=== PATIENT | female | born 1970 | race African-American/Black ===

== ENCOUNTER 2021-04-08 08:29 | Outpatient (REF) | payer OTHER, SELFPAY | END 2021-04-08 08:30 | disposition home or self-care (01) | LOC: HO.SCI 08:29 | PROVIDERS: Visit Provider Internal Medicine | DX: Z13.89 Encounter for screening for other disorder (principal) ==

== ENCOUNTER 2021-05-13 09:03 | Outpatient (REF) | payer OTHER, SELFPAY ==
--- NOTE | ~2021-05-13 | US_ITS ---
EXAMINATION: US THYROID CLINICAL INFORMATION: Goiter. COMPARISON: None TECHNIQUE: Linear transducer grayscale and color Doppler examination with attention to the region of the thyroid. FINDINGS: SIZE: Measurements of the thyroid lobes and nodules are given in sagittal, anteroposterior and transverse dimensions respectively. Right Thyroid Lobe: 5.7 x 2.0 x 2.3 cm, volume 13.7 mL. Parenchyma: The gland echotexture is heterogeneous. Thyroid vascularity is normal. Left Thyroid Lobe: 7.7 x 2.9 x 3.0 cm, volume 35.0 mL. Parenchyma: The gland echotexture is heterogeneous. Thyroid vascularity is increased. Isthmus: 0.9 cm in maximum AP dimension. Estimated total number of nodules greater than or equal to 1 cm: 2. Sedimentationist nodules are described as follows: 1. Location: Left lobe extending into isthmus. Size: 4.3 x 2.9 x 5.0 cm, volume 32.9 mL. Nodule characteristics: Composition: Solid (2). Echogenicity: Isoechoic (1). Shape: Not taller than wide (0). Margins: Lobulated (2). Echogenic Foci: None (0). ACR TI-RADS total points: 5 ACR TI-RADS category: 4 2. Location: Right upper pole. Size: 1.0 x 0.7 x 1.0 cm, volume 0.37 mL. Nodule characteristics: Composition: Solid (2). Echogenicity: Hypoechoic (2). Shape: Not taller than wide (0). Margins: Smooth (0). Echogenic Foci: Punctate echogenic foci (3). ACR TI-RADS total points: 7 ACR TI-RADS category: 5 3. Location: Right mid pole. Size: 0.7 x 0.4 x 0.6 cm, volume 0.07 mL. Nodule characteristics: Composition: Mixed cystic and solid (1). Echogenicity: Hypoechoic (2). Shape: Not taller than wide (0). Margins: Smooth (0). Echogenic Foci: None (0). ACR TI-RADS total points: 3 ACR TI-RADS category: 3 4. Location: Right lower pole/lateral. Size: 0.7 x 0.4 x 0.6 cm, volume 0.09 mL. Nodule characteristics: Composition: Solid/almost completely solid (2). Echogenicity: Hypoechoic (2). Shape: Not taller than wide (0). Margins: Smooth (0). Echogenic Foci: None (0). ACR TI-RADS total points: 4 ACR TI-RADS category: 4 5. Location: Right lower pole/medial. Size: 0.6 x 0.4 x 0.4 cm, volume 0.05 mL. Nodule characteristics: Composition: Cannot be determined (2). Echogenicity: Cannot be determined (1). Shape: Not taller than wide (0). Margins: Smooth (0). Echogenic Foci: Peripheral calcifications (2). ACR TI-RADS total points: 5 ACR TI-RADS category: 5 NODES: No lymphadenopathy is seen in the tissue surrounding the thyroid gland. US/US thyroid IMPRESSION: Enlarged heterogeneous thyroid gland with multiple bilateral nodules. Fine-needle aspiration of the largest nodule in the left lobe extending into the isthmus and partially calcified nodule in the right upper lobe recommended. ACR TI-RADS RECOMMENDATION REFERENCE: Ultrasound-guided fine-needle aspiration, followup ultrasound, no further follow up. * TR1 (0 point) and TR 2 (2 points): No FNA or follow up * TR3 (3 points): FNA if more than or equal to 2.5 cm in maximum dimension, followup ultrasound in 1, 3 and 5 years if 1.5 to 2.4 cm in maximum dimension. * TR4 (4-6 points): FNA if more than or equal to 1.5 cm in maximum dimension, followup ultrasound in 1, 2, 3 and 5 years if 1 to 1.4 cm in maximum dimension. * TR5 (more than or equal to 7 points): FNA if more than or equal to 1 cm in maximum dimension, followup ultrasound every year for 5 years if 0.5 to 0.9 cm in maximum dimension. * TR3, TR4 or TR5 nodules that are below the size threshold for follow up receive no follow up.
== END 2021-05-13 09:04 | disposition home or self-care (01) ==
LOC: HO.HMGCX 09:03
PROVIDERS: PCP Internal Medicine; Visit Provider Internal Medicine
DX: E01.0 Iodine-deficiency related diffuse (endemic) goiter (principal)
CPT/HCPCS: 76536

== ENCOUNTER 2022-12-02 10:41 | Outpatient (REF) | payer OTHER, SELFPAY ==
--- NOTE | 2022-12-02 11:35 | PM.OP ---
Brief Operative Note Date of Service: 12/02/22 Pre-op diagnosis: Multinodular Thyroid Procedure: This is doctor Jennifer Mojica. This is an ultrasound-guided fine-needle aspiration report. Indication: Multinodular Thyroid Porcedure: Procedure was explained to the patient. Alternatives, the risk and benefits were discussed. Written consent was obtained. A time-out was also obtained. After sterile preparation, 1 ml of 1% lidocaine solution was applied subcutaneously for anesthetic effect. Then Fine-needle aspiration of a left lobe 5.0 cm thyroid nodule was performed using direct ultrasound guidance to confirm accurate needle placement. Four aspirations were made using 27 gauge needles. Samples were submitted for cytology. 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 The patient tolerated the procedure well. Aftercare instructions were provided. Impression: Uncomplicated fine needle aspiration biopsy of a left lobe 5.0 cm thyroid nodule under ultrasound guidance. Surgeon: Jennifer Mojica, DO Was an Composition Siding Worker used for this Procedure?: No Estimated blood loss (mL): 0
[2022-12-02] MEDS: Lidocaine HCl 1 % MPF 5 ML VIAL 1 ML SUBCUT (12:11)
== END 2022-12-02 10:42 | disposition home or self-care (01) ==
LOC: HO.US 10:41
PROVIDERS: PCP Internal Medicine; Visit Provider Internal Medicine
DX: E04.2 Nontoxic multinodular goiter (principal)
CPT/HCPCS: 10005; 88172; 88173; 88305

== ENCOUNTER → 2022-12-22 07:57 | Outpatient (BNVA) | payer OTHER, SELFPAY | PROVIDERS: PCP Internal Medicine; Visit Provider Internal Medicine | DX: E04.2 Nontoxic multinodular goiter (principal); E03.9 Hypothyroidism, unspecified; E55.9 Vitamin D deficiency, unspecified | CPT/HCPCS: 99212 ==

== ENCOUNTER 2022-12-22 08:37 | Outpatient (REF) | payer OTHER, SELFPAY ==
[2022-12-22 11:16] LABS: Alanine Aminotransferase 24 U/L (0-31); Albumin Level 4.4 g/dL (3.5-5.0); Alkaline Phosphatase 63 U/L (39-117); Anion Gap 12 (12-20); Aspartate Amino Transferase 12 U/L (5-31); Bilirubin Total 0.4 mg/dL (0.0-1.0); Blood Urea Nitrogen 8 mg/dL (9-16); Calcium 10.2 mg/dL (8.4-10.2); Carbon Dioxide 30 mmol/L (22-29); Chloride 103 mmol/L (96-108); Estimated Glomerular Filt Rate > 60; Glucose Random 259 mg/dL (60-115); Phosphorus 2.6 mg/dL (2.7-4.5); Potassium 3.9 mmol/L (3.3-5.1); Sodium 141 mmol/L (135-145); Total Protein 7.1 g/dL (6.5-8.0)
[2022-12-22 11:23] LABS: Free T4 (Free Thyroxine) 1.14 ng/dL (0.71-1.85); Thyroid Stimulating Hormone 0.76 uIU/mL (0.32-4.0)
[2022-12-24 16:33] LABS: Calcium (PTHI) 10.2 mg/dL (8.6-10.4); PTHI 42 pg/mL (16-77)
== END 2022-12-22 08:38 | disposition home or self-care (01) ==
LOC: HO.10HDL 08:37
PROVIDERS: Visit Provider Internal Medicine
DX: E04.2 Nontoxic multinodular goiter (principal); E55.9 Vitamin D deficiency, unspecified
CPT/HCPCS: 36415; 80053; 82306; 83970; 84100; 84439; 84443

== ENCOUNTER 2023-09-05 10:03 | Outpatient (AMB) | payer OTHER, SELFPAY ==
[2023-09-05 10:06] VITALS: BP 154/78; PULSE 100; BMI 27.0
--- NOTE | 2023-09-05 10:06 | MHC.OFFVIS ---
Intake Vital Signs 09/05/23 10:06 Height 5 ft 5 in Weight 162 lb 7.691 oz BMI 27.0 BP 154/78 H Blood Pressure Location Lt brachial Position Sitting Pulse 100 Pulse Source Pulse Oximeter Intake Visit Reasons: NTMNG-confirmed Intake Note: Patient present today for NTMNG follow up visit. Customer Strategy Manager Required: Yes Customer Strategy Manager Language: Occitan Customer Strategy Manager Name: [place] Information Interpreted: non-clinical & clinical Accompanied by: Son Allergies No Known Allergies Allergy (Verified 12/22/22 08:18) Medication List - Last Reconciled 09/05/23 by Gerhard Renteria MD alcohol swabs (Alcohol Prep Pads) pad topical DAILY blood sugar diagnostic (FreeStyle Lite Strips) As directed lancets (TRUEplus Lancets) As directed levothyroxine 50 mcg PO DAILY lisinopril 5 mg PO DAILY metformin 500 mg PO BID simvastatin 40 mg PO DAILY sitagliptin phosphate (Januvia) 50 mg PO DAILY HPI HPI Comments History of Present Illness Details 53 YO F with PMHx Hypothyroidism and a multinodular thyroid who is seen in F/U for a NTMNG. The patient last saw Dr. Puentes on 12/02/2022 History is provided by her Son today. Was initially diagnosed with multinodular thyroid in her home country of [place]. He reports she did undergo an FNA biopsy there, approximately 1 year ago, but he is unsure which nodules were biopsied. He does report the results were benign. She then underwent an FNA biopsy 12/02/2022 of a left lower pole 5.0 cm thyroid nodule with benign cytology. She presents today to review these results. She denies any dysphagia or hoarseness of voice, but does report pressure while lying flat. She states this is significantly disrupting her sleep. She otherwise feels well and has no complaints today. She does have a history of hypothyroidism and takes levothyroxine 50 mcg PO daily. She was consuming a diet low in iodine for the majority of her life. Denies any history of head or neck irradiation. Denies any family history of thyroid cancer. Thyroid US: 05/13/2021 Right Thyroid Lobe: 5.7 x 2.0 x 2.3 cm, volume 13.7 mL. Parenchyma: The gland echotexture is heterogeneous. Thyroid vascularity is normal. Left Thyroid Lobe: 7.7 x 2.9 x 3.0 cm, volume 35.0 mL. Parenchyma: The gland echotexture is heterogeneous. Thyroid vascularity is increased. Isthmus: 0.9 cm in maximum AP dimension. Estimated total number of nodules greater than or equal to 1 cm: 2. [place] nodules are described as follows: 1. Location: Left lobe extending into isthmus. ?? ? Size: 4.3 x 2.9 x 5.0 cm, volume 32.9 mL. ?? ? Nodule characteristics: ?? ? Composition: Solid (2). ?? ? Echogenicity: Isoechoic (1). ?? ? Shape: Not taller than wide (0). ?? ? Margins: Lobulated (2). ?? ? Echogenic Foci: None (0). ?? ? ACR TI-RADS total points: 5 ?? ? ACR TI-RADS category: 4 2. Location: Right upper pole. ?? ? Size: 1.0 x 0.7 x 1.0 cm, volume 0.37 mL. ?? ? Nodule characteristics: ?? ? Composition: Solid (2). ?? ? Echogenicity: Hypoechoic (2). ?? ? Shape: Not taller than wide (0). ?? ? Margins: Smooth (0). ?? ? Echogenic Foci: Punctate echogenic foci (3). ?? ? ACR TI-RADS total points: 7 ?? ? ACR TI-RADS category: 5 3. Location: Right mid pole. ?? ? Size: 0.7 x 0.4 x 0.6 cm, volume 0.07 mL. ?? ? Nodule characteristics: ?? ? Composition: Mixed cystic and solid (1). ?? ? Echogenicity: Hypoechoic (2). ?? ? Shape: Not taller than wide (0). ?? ? Margins: Smooth (0). ?? ? Echogenic Foci: None (0). ?? ? ACR TI-RADS total points: 3 ?? ? ACR TI-RADS category: 3 4. Location: Right lower pole/lateral. ?? ? Size: 0.7 x 0.4 x 0.6 cm, volume 0.09 mL. ?? ? Nodule characteristics: ?? ? Composition: Solid/almost completely solid (2). ?? ? Echogenicity: Hypoechoic (2). ?? ? Shape: Not taller than wide (0). ?? ? Margins: Smooth (0). ?? ? Echogenic Foci: None (0). ?? ? ACR TI-RADS total points: 4 ?? ? ACR TI-RADS category: 4 5.? Location: Right lower pole/medial. ?? ? Size: 0.6 x 0.4 x 0.4 cm, volume 0.05 mL. ?? ? Nodule characteristics: ?? ? Composition: Cannot be determined (2). ?? ? Echogenicity: Cannot be determined (1). ?? ? Shape: Not taller than wide (0). ?? ? Margins: Smooth (0). ?? ? Echogenic Foci: Peripheral calcifications (2). ?? ? ACR TI-RADS total points: 5 ?? ? ACR TI-RADS category: 5 NODES: No lymphadenopathy is seen in the tissue surrounding the thyroid gland. Labs: No recent pertinent labs to review She was referred to Dr. Huston for possible left lobectomy by Dr. Puentes. [facility] Medical History Hypothyroidism Multinodular thyroid T2DM (type 2 diabetes mellitus) Vitamin D deficiency Surgical History Hx of section Family History Father Unknown family medical history Mother Unknown family medical history Social History Alcohol intake: never Patient Tobacco Use Status: Never used Tobacco Physical Exam Vital Signs: Last Vital Signs Pulse 100 09/05/23 10:06 BP 154/78 H 09/05/23 10:06 BMI result Body Mass Index 27.0 Const Other: Thyroid gland increased in size and weighs 50 gms Llobe>R lbe Assessment & Plan Assessment & Plan (1) Hypothyroidism: Code(s): E03.9 - Hypothyroidism, unspecified Plan: Appears clinically euthyroid on 50 mcg levothyroxine. Will check free T4 and TSH and adjust levothyroxine accordingly (2) Multinodular thyroid: Code(s): E04.2 - Nontoxic multinodular goiter Plan: This is a 53-year-old female with a history of multinodular goiter with a large left thyroid nodule extending into the isthmus with compressive symptoms. She appears to be clinically euthyroid on 50 mcg levothyroxine. With the son acting as fitness management director, I explained the necessity of seeing Dr. Huston for evaluation of left thyroidectomy. They cancelled the previous appointment but will make another one. They will follow-up after lobectomy Orders: Orders Free T4 (Free Thyroxine) Today E03.9 - Hypothyroidism, unspecified, E04.2 - Nontoxic multinodular goiter Thyroid Stimulating Hormone Today E03.9 - Hypothyroidism, unspecified, E04.2 - Nontoxic multinodular goiter Coding Level of Care Code Est Pt Level 3 (43336) Diagnoses Hypothyroidism E03.9 Multinodular thyroid E04.2
== END 2023-09-05 10:27 | disposition home or self-care (01) ==
PROVIDERS: PCP Internal Medicine; Visit Provider Internal Medicine Endocrinology, Diabetes & Metabolism
DX: E03.9 Hypothyroidism, unspecified (principal); E04.2 Nontoxic multinodular goiter
CPT/HCPCS: 99213

== ENCOUNTER → 2023-09-05 10:03 | Outpatient (BNVA) | payer OTHER, SELFPAY | PROVIDERS: PCP Internal Medicine; Visit Provider Internal Medicine Endocrinology, Diabetes & Metabolism | DX: E03.9 Hypothyroidism, unspecified (principal); E04.2 Nontoxic multinodular goiter | CPT/HCPCS: 99212 ==

== ENCOUNTER 2023-09-05 10:35 | Outpatient (REF) | payer OTHER, SELFPAY ==
[2023-09-05 14:13] LABS: Free T4 (Free Thyroxine) 1.13 ng/dL (0.71-1.85); Thyroid Stimulating Hormone 0.47 uIU/mL (0.32-4.0)
== END 2023-09-05 10:36 | disposition home or self-care (01) ==
LOC: HO.10HDL 10:35
PROVIDERS: Visit Provider Internal Medicine Endocrinology, Diabetes & Metabolism
DX: E03.9 Hypothyroidism, unspecified (principal); E04.2 Nontoxic multinodular goiter
CPT/HCPCS: 36415; 84439; 84443

== ENCOUNTER 2024-01-30 08:41 | Outpatient (REF) | payer OTHER, SELFPAY ==
[2024-01-30 13:15] LABS: MANUAL DIFF FLAG NO
[2024-01-30 13:18] LABS: Basophils Percent Auto 0.4 % (0-2); Eosinophils Absolute Auto 0.1 X10*3/uL (0.0-0.4); Eosinophils Percent Auto 0.8 % (0-4); Hematocrit 41.1 % (37.0-47.0); Hemoglobin 14.2 g/dl (12.0-16.0); Imm Gran Abs Auto 0.03 X10*3/uL (0.00-0.03); Imm Gran Pct Auto 0.4 % (0.0-0.4); Lymphocytes Absolute Auto 2.8 X10*3/uL (1.2-4.9); Lymphocytes Percent Auto 38.2 % (20-40); Mean Corpuscular HGB Conc 34.5 g/dl (31.0-35.0); Mean Corpuscular Hemoglobin 29.8 pg (27.0-33.0); Mean Corpuscular Volume 86.2 fL (80.0-98.0); Mean Platelet Volume 11.1 fL (9.4-12.3); Monocytes Absolute Auto 0.4 X10*3/uL (0.1-1.2); Monocytes Percent Auto 5.8 % (2-11); Neutrophils Percent Auto 54.4 % (45-73); Platelet Count 241 X10*3/uL (160-400); Red Blood Count 4.77 X10*6/uL (4.20-5.50); Red Cell Distribution Width 12.5 % (11.0-16.0); White Blood Count 7.4 X10*3/uL (4.8-10.8)
[2024-01-30 13:47] LABS: Alanine Aminotransferase 24 U/L (0-31); Albumin Level 4.6 g/dL (3.5-5.0); Alkaline Phosphatase 61 U/L (39-117); Anion Gap 16 (12-20); Aspartate Amino Transferase 12 U/L (5-31); Bilirubin Total 0.4 mg/dL (0.0-1.0); Blood Urea Nitrogen 15 mg/dL (9-16); Calcium 9.8 mg/dL (8.4-10.2); Carbon Dioxide 26 mmol/L (22-29); Chloride 103 mmol/L (96-108); Cholesterol 169 mg/dL (<200); Estimated Glomerular Filt Rate > 60; Glucose Random 220 mg/dL (60-115); HDL Cholesterol 47 mg/dL (>40); LDL Cholesterol Calculated 92 mg/dL (<100); Potassium 4.3 mmol/L (3.3-5.1); Sodium 141 mmol/L (135-145); Total Protein 7.7 g/dL (6.5-8.0); Triglycerides 154 mg/dL (<150)
[2024-01-30 13:55] LABS: Microalbum/Creatinine Ratio Ur 11.7 ug/mg cr (<30)
[2024-01-30 14:06] LABS: Folate 12.8 ng/mL (> or = 4.0); Vitamin B12 406 pg/mL (200-900)
[2024-01-30 15:02] LABS: TSH reflex Free T4 0.63 uIU/mL (0.32-4.0)
== END 2024-01-30 08:42 | disposition home or self-care (01) ==
LOC: HO.CHCLDS 08:41
PROVIDERS: Visit Provider Family Medicine
DX: E11.65 Type 2 diabetes mellitus with hyperglycemia (principal); E03.9 Hypothyroidism, unspecified
CPT/HCPCS: 36415; 80053; 80061; 82043; 82570; 82607; 82746; 84443; 85025

== ENCOUNTER 2024-02-08 09:08 | Outpatient (REF) | payer OTHER, SELFPAY ==
--- NOTE | ~2024-02-08 | MM_ITS ---
EXAMINATION: MM SCREENING DIGITAL BREAST TOMOSYNTHESIS, BILATERAL CLINICAL INFORMATION: Screening. Asymptomatic. COMPARISON: Mammography: This is a baseline mammogram. TECHNIQUE: Digital breast tomosynthesis is performed in both the craniocaudal and mediolateral oblique views along with computer-aided detection (CAD). Synthesized 2D images are generated from the tomosynthesis. FINDINGS: There are scattered areas of fibroglandular density (ACR BI-RADS breast composition Category b). There are no significant masses, abnormal calcifications, or other abnormalities. MM/MM tomosynthesis screening BI IMPRESSION: No mammographic evidence of malignancy. ASSESSMENT: BI-RADS BI-RADS 1 - Negative RECOMMENDATION: Routine annual mammography screening. 1 year F/U This examination should not preclude the clinical evaluation of a suspicious palpable abnormality. This patient's information was entered into a reminder system with a target due date for their next mammogram.
== END 2024-02-08 09:09 | disposition home or self-care (01) ==
LOC: HO.MAMMO 09:08
PROVIDERS: PCP Internal Medicine; Visit Provider Family Medicine
DX: Z12.31 Encounter for screening mammogram for malignant neoplasm of breast (principal)
CPT/HCPCS: 77063; 77067

== ENCOUNTER → 2024-02-08 09:15 | Outpatient (BNV) | payer OTHER, SELFPAY | PROVIDERS: PCP Internal Medicine; Visit Provider Radiology Diagnostic Radiology | DX: Z12.31 Encounter for screening mammogram for malignant neoplasm of breast (principal) | CPT/HCPCS: 77063; 77067 ==

== ENCOUNTER 2024-05-22 15:45 | Outpatient (REF) | payer OTHER, SELFPAY ==
[2024-05-22 18:03] LABS: Free T4 (Free Thyroxine) 1.17 ng/dL (0.71-1.85); Thyroid Stimulating Hormone 6.11 uIU/mL (0.32-4.0)
[2024-05-23 09:14] LABS: Thyroglobulin 0.8 ng/mL; Thyroglobulin Antibodies <1 IU/mL (< or = 1)
[2024-05-24 20:07] LABS: Thyroglobulin Antibody <1 IU/mL (<=1); Thyroglobulin Level 0.8 ng/mL
== END 2024-05-22 15:46 | disposition home or self-care (01) ==
LOC: HO.LAB 15:45
PROVIDERS: PCP Internal Medicine; Visit Provider Student in an Organized Health Care Education/Training Program
DX: E04.2 Nontoxic multinodular goiter (principal); E03.9 Hypothyroidism, unspecified; C73 Malignant neoplasm of thyroid gland
CPT/HCPCS: 36415; 84432; 84439; 84443; 86800

== ENCOUNTER 2024-05-24 09:44 | Outpatient (AMB) | payer OTHER, SELFPAY ==
--- NOTE | 2024-05-24 09:58 | MHC.OFFVIS ---
Vital Signs 05/24/24 09:59 Weight 159 lb 6.307 oz BP 150/76 H Blood Pressure Location Lt brachial Position Sitting Pulse 84 Pulse Source Pulse Oximeter Intake Visit Reasons: F/b-[id number] Dr. Rob/LVM Intake Note: Patient present today for Thyroidectomy follow up visit. [employer] Required: Yes [employer] Language: Greenlandic [employer] Services: [employer] Offered & Declined Accompanied by: Son Allergies No Known Allergies Allergy (Verified 05/24/24 10:01) Medication List - Last Reconciled 05/24/24 by Faustina Rob MD alcohol swabs (Alcohol Prep Pads) pad topical DAILY blood sugar diagnostic (FreeStyle Lite Strips) As directed lancets (TRUEplus Lancets) As directed levothyroxine 112 mcg PO DAILY lisinopril 5 mg PO DAILY metformin 500 mg PO BID simvastatin 40 mg PO DAILY sitagliptin phosphate (Januvia) 50 mg PO DAILY HPI Comments Details: 53-year-old female coming in today for follow up of papillary thyroid cancer status post total thyroidectomy on 04/18/[address] Tapan Huston at [facility], with pathology revealing multifocal (4 foci) classic PTC, largest tumor 8 mm in the right lobe, remaining foci ranging between 0.15-4 mm bilaterally, with no ET E/AI/LI, negative margins, no lymph nodes assessment. NU low risk of recurrence for initial risk. Now coming in for follow up. She was previously followed by Dr. Puentes, then saw Dr. Renteria, last visit August 2023. She is here with her son today who is doing all the interpretation and answering the questions. History of PTC in detail Was initially diagnosed with multinodular thyroid in her home country [place] 2020: Apparently she did undergo FNA biopsy there in 2020, but was unsure which nodules were biopsied. Reportedly the results were benign. Thyroid ultrasound from May 2021 showed multiple bilateral thyroid nodules with a left lobe dominant nodule extending into the isthmus measuring 4 point 3 X 2.9 X 5 cm. TR 4 category. Established care with us with Dr. Puentes in January 2022. November/2022: Underwent FNA of the left dominant 5 cm nodule which came back benign [place] category 2 She continued to complain of compressive symptoms hence she was referred to Dr. Tapan Huston at [facility]. 04/18/2024: Underwent total thyroidectomy with Dr. Tapan Huston at [facility] with pathology revealing multifocal classic PTC (4 foci)largest tumor 8 mm in the right lobe, remaining foci ranging between 0.15-4 mm bilaterally, with no ET E/AI/LI, negative margins, no lymph nodes assessment. AJCC stage I (pT1, NX), NU initial low risk of recurrence She also notably has a history of hypothyroidism previously and was on levothyroxine 50 mcg daily. Post surgery she has been started on levothyroxine 112 mcg daily since 04/18/24. She is adherent to her therapy however she has been taking it after breakfast daily. Most recent labs 05/22/24: TSH 6.11, free T4 1.17, thyroglobulin 0.8, thyroglobulin antibodies undetectable She currently denies any numbness or tingling in feet or hands. Denies any perioral numbness. Her vitamin-D level was 7 from December 2022, fortunately no symptoms of hypocalcemia with no parathyroid adenoma removed during surgery. She is not taking any vitamin-D currently. Patient currently denies heat or cold intolerance, diarrhea or constipation, hair loss, palpitation, anxiety, weight changes, mood changes, low energy, changes in appearance of eyes or vision changes, tremors, increased diaphoresis or dry skin. ? Patient denies any difficulty swallowing, pain on swallowing or voice changes or difficulty breathing. Patient denies any history of childhood neck radiation. Denies having ever used lithium, amiodarone or biotin supplements. Patient denies any family history of thyroid cancer or thyroid disease. Review of systems Constitutional: no fevers, chills or weight loss HEENT: no changes in vision Cardiac: No chest pain, discomfort or palpitations. Pulmonary: No SOB GI:No abdominal pain, no nausea or vomiting, no anorexia, no blood in stool : no burning micturition, dysuria or increase in urinary frequency Physical exam General: sitting comfortably in no acute distress HEENT: normocephalic/atraumatic,, moist oral mucosa Neck: supple, surgical scar well healed, no dorsocervical or supraclavicular fat pads Cardiac: normal heart sounds Pulm: normal breath sounds B/L, no added breath sounds Abd: not distended, no tenderness Extremities: no edema, no signs of myxedema Neuro: AAO x3, Speech: normal, no facial droop, moving all 4 extremities [facility] Medical History (Updated 05/24/24 @ 10:48 by Faustina Rob MD) Papillary thyroid carcinoma T2DM (type 2 diabetes mellitus) Vitamin D deficiency Multinodular thyroid Hypothyroidism Surgical History Hx of section Family History Father Unknown family medical history Mother Unknown family medical history Social History Alcohol intake: never Patient Tobacco Use Status: Never used Tobacco Physical Exam Vital Signs: Last Vital Signs Pulse 84 05/24/24 09:59 BP 150/76 H 05/24/24 09:59 Results Reviewed Results Reviewed: Laboratory Tests 05/22/24 16:00 TSH 6.11 H Free T4 1.17 Thyroglobulin 0.8 L Thyroglobulin Antibody <1 US THYROID May 2021 CLINICAL INFORMATION: Goiter. COMPARISON: None TECHNIQUE: Linear transducer grayscale and color Doppler examination with attention to the region of the thyroid. FINDINGS: SIZE: Measurements of the thyroid lobes and nodules are given in sagittal, anteroposterior and transverse dimensions respectively. Right Thyroid Lobe: 5.7 x 2.0 x 2.3 cm, volume 13.7 mL. Parenchyma: The gland echotexture is heterogeneous. Thyroid vascularity is normal. Left Thyroid Lobe: 7.7 x 2.9 x 3.0 cm, volume 35.0 mL. Parenchyma: The gland echotexture is heterogeneous. Thyroid vascularity is increased. Isthmus: 0.9 cm in maximum AP dimension. Estimated total number of nodules greater than or equal to 1 cm: 2. [employer] nodules are described as follows: 1. Location: Left lobe extending into isthmus. Size: 4.3 x 2.9 x 5.0 cm, volume 32.9 mL. Nodule characteristics: Composition: Solid (2). Echogenicity: Isoechoic (1). Shape: Not taller than wide (0). Margins: Lobulated (2). Echogenic Foci: None (0). ACR TI-RADS total points: 5 ACR TI-RADS category: 4 2. Location: Right upper pole. Size: 1.0 x 0.7 x 1.0 cm, volume 0.37 mL. Nodule characteristics: Composition: Solid (2). Echogenicity: Hypoechoic (2). Shape: Not taller than wide (0). Margins: Smooth (0). Echogenic Foci: Punctate echogenic foci (3). ACR TI-RADS total points: 7 ACR TI-RADS category: 5 3. Location: Right mid pole. Size: 0.7 x 0.4 x 0.6 cm, volume 0.07 mL. Nodule characteristics: Composition: Mixed cystic and solid (1). Echogenicity: Hypoechoic (2). Shape: Not taller than wide (0). Margins: Smooth (0). Echogenic Foci: None (0). ACR TI-RADS total points: 3 ACR TI-RADS category: 3 4. Location: Right lower pole/lateral. Size: 0.7 x 0.4 x 0.6 cm, volume 0.09 mL. Nodule characteristics: Composition: Solid/almost completely solid (2). Echogenicity: Hypoechoic (2). Shape: Not taller than wide (0). Margins: Smooth (0). Echogenic Foci: None (0). ACR TI-RADS total points: 4 ACR TI-RADS category: 4 5. Location: Right lower pole/medial. Size: 0.6 x 0.4 x 0.4 cm, volume 0.05 mL. Nodule characteristics: Composition: Cannot be determined (2). Echogenicity: Cannot be determined (1). Shape: Not taller than wide (0). Margins: Smooth (0). Echogenic Foci: Peripheral calcifications (2). ACR TI-RADS total points: 5 ACR TI-RADS category: 5 NODES: No lymphadenopathy is seen in the tissue surrounding the thyroid gland. US/US thyroid IMPRESSION: Enlarged heterogeneous thyroid gland with multiple bilateral nodules. Fine-needle aspiration of the largest nodule in the left lobe extending into the isthmus and partially calcified nodule in the right upper lobe recommended. Assessment & Plan Assessment & Plan (1) Papillary thyroid carcinoma: Code(s): C73 - Malignant neoplasm of thyroid gland Category: Medical Plan: 53-year-old female coming in today for follow up of papillary thyroid cancer status post total thyroidectomy on 04/18/[address] Tapan Huston at [facility], with pathology revealing multifocal (4 foci) classic PTC, largest tumor 8 mm in the right lobe, remaining foci ranging between 0.15-4 mm bilaterally, with no ET E/AI/LI, negative margins, no lymph nodes assessment. AJCC stage I (pT1, NX) ,NU low risk of recurrence for initial risk. She is at this time 5 weeks post surgery and her most recent labs from 05/22/24, showed thyroglobulin level of 0.8. Undetectable thyroglobulin antibodies. It takes about 6-8 weeks to get a good idea of what her postoperative thyroglobulin level is like. The level currently is not significantly elevated but still detectable and we hope that it will go down further in the next few weeks. I will have her repeat labs in 6 weeks. Her TSH is noted to be at 6.11. She is currently on levothyroxine 112 mcg daily. She has been taking it after her breakfast which might be affecting her absorption. Given that her thyroglobulin level is currently detectable in greater than 0.2, TSH goal is less than 0.1. If her thyroglobulin becomes undetectable, we can liberalize this goal to 0.1-0.5. For now I will increase her levothyroxine to 125 mcg daily. Also counseled her about importance of taking levothyroxine on an empty stomach, 1st thing in the morning and to wait at least an hour before she has breakfast/coffee/tea. And do not take it with any other medications. Wait at least 4 hours if she is taking any supplements. Plan: -increase levothyroxine to 125 mcg daily -repeat TSH, free T4, TG and TG antibody levels in 6 weeks -follow up in 3 months -would be due for ultrasound of the neck at the 6 month [facility] which would be in October 2024 (2) Hypothyroidism: Code(s): E03.9 - Hypothyroidism, unspecified Category: Medical Qualifiers: Hypothyroidism type: postoperative Qualified Code(s): E89.0 - Postprocedural hypothyroidism Plan: She also has a history of hypothyroidism prior to surgery. Was on levothyroxine 50 mcg daily preoperatively. Postoperatively she has been started on levothyroxine 112 mcg daily which is her weight based dose. Her TSH is noted to be at 6.11. She is currently on levothyroxine 112 mcg daily. She has been taking it after her breakfast which might be affecting her absorption. Given that her thyroglobulin level is currently detectable in greater than 0.2, TSH goal is less than 0.1. If her thyroglobulin becomes undetectable, we can liberalize this goal to 0.1-0.5. For now I will increase her levothyroxine to 125 mcg daily. Also counseled her about importance of taking levothyroxine on an empty stomach, 1st thing in the morning and to wait at least an hour before she has breakfast/coffee/tea. And do not take it with any other medications. Wait at least 4 hours if she is taking any supplements. Plan: -increase levothyroxine to 125 mcg daily -repeat TSH, free T4, TG and TG antibody levels in 6 weeks -follow up in 3 months (3) Vitamin D deficiency: Code(s): E55.9 - Vitamin D deficiency, unspecified Category: Medical Plan: Vitamin-D level noted to be at 7 from December 2022. This should be between 30-60. Start vitamin-D 1000 units daily. Fortunately no parathyroid injury during the thyroidectomy. She denies any signs of hypocalcemia. We will also check a calcium, albumin and vitamin-D level with the next labs. We will also plan to repeat vitamin-D levels 3 months after supplementation. Plan: -start vitamin-D 1000 units daily -check calcium, albumin, vitamin-D level in 6 weeks with the next set blood work -we will also need repeat vitamin-D levels in 3 months which would be prior to her next follow up Plan I spent 30 minutes in reviewing the record, seeing the patient and documenting in the medical record. Orders: Orders Thyroglobulin Tumor Marker 6 Weeks C73 - Malignant neoplasm of thyroid gland, E03.9 - Hypothyroidism, unspecified, E55.9 - Vitamin D deficiency, unspecified Calcium 6 Weeks C73 - Malignant neoplasm of thyroid gland, E03.9 - Hypothyroidism, unspecified, E55.9 - Vitamin D deficiency, unspecified Vitamin D 25-OH Total 6 Weeks C73 - Malignant neoplasm of thyroid gland, E03.9 - Hypothyroidism, unspecified, E55.9 - Vitamin D deficiency, unspecified Thyroid Stimulating Hormone 6 Weeks C73 - Malignant neoplasm of thyroid gland, E03.9 - Hypothyroidism, unspecified, E55.9 - Vitamin D deficiency, unspecified Thyroglobulin 6 Weeks C73 - Malignant neoplasm of thyroid gland, E03.9 - Hypothyroidism, unspecified, E55.9 - Vitamin D deficiency, unspecified Thyroglobulin Antibodies 6 Weeks C73 - Malignant neoplasm of thyroid gland, E03.9 - Hypothyroidism, unspecified, E55.9 - Vitamin D deficiency, unspecified Free T4 (Free Thyroxine) 6 Weeks C73 - Malignant neoplasm of thyroid gland, E03.9 - Hypothyroidism, unspecified, E55.9 - Vitamin D deficiency, unspecified Albumin Level 6 Weeks C73 - Malignant neoplasm of thyroid gland, E03.9 - Hypothyroidism, unspecified, E55.9 - Vitamin D deficiency, unspecified Medications: New cholecalciferol (vitamin D3) 25 mcg PO DAILY 30 caps 4RF levothyroxine (Synthroid) 125 mcg PO DAILY 30 tabs 4RF Patient Instructions: Increase levothyroxine to 125 mcg daily Take this first thing in the morning empty stomach, wait at least an hour before eating or drinking coffee /tea Do blood work in 6 weeks, we will call higinio squires Start taking vitamin D 1000 units daily Follow up in 3 months Coding Level of Care Code Est Pt Level 4 (57894) Complex EM visit Add On [id number] Diagnoses Papillary thyroid carcinoma C73 Postoperative hypothyroidism E89.0 Hypothyroidism type: postoperative Vitamin D deficiency E55.9 Time Spent (min) 30
[2024-05-24 09:59] VITALS: BP 150/76; PULSE 84
== END 2024-05-24 10:44 | disposition home or self-care (01) ==
PROVIDERS: PCP Internal Medicine; Visit Provider Student in an Organized Health Care Education/Training Program
DX: C73 Malignant neoplasm of thyroid gland (principal); E89.0 Postprocedural hypothyroidism; E55.9 Vitamin D deficiency, unspecified
CPT/HCPCS: 99214; G2211

== ENCOUNTER → 2024-05-24 09:44 | Outpatient (BNVA) | payer OTHER, SELFPAY | PROVIDERS: PCP Internal Medicine; Visit Provider Student in an Organized Health Care Education/Training Program | DX: C73 Malignant neoplasm of thyroid gland (principal); E89.0 Postprocedural hypothyroidism; E55.9 Vitamin D deficiency, unspecified | CPT/HCPCS: 99212 ==

== ENCOUNTER 2024-07-13 08:35 | Outpatient (REF) | payer OTHER, SELFPAY ==
[2024-07-13 10:02] LABS: Albumin Level 4.5 g/dL (3.5-5.0); Calcium 10.7 mg/dL (8.4-10.2)
[2024-07-13 10:24] LABS: Free T4 (Free Thyroxine) 1.41 ng/dL (0.71-1.85); Thyroid Stimulating Hormone 0.31 uIU/mL (0.32-4.0); Vitamin D 25-OH Total 32.2 ng/mL (>30)
[2024-07-18 07:08] LABS: Thyroglobulin Antibody <1 IU/mL (<=1); Thyroglobulin Level 0.1 ng/mL
[2024-07-18 20:19] LABS: Thyroglobulin <0.1 ng/mL; Thyroglobulin Antibodies <1 IU/mL (< or = 1)
== END 2024-07-13 08:36 | disposition home or self-care (01) ==
LOC: HO.LAB 08:35
PROVIDERS: Visit Provider Student in an Organized Health Care Education/Training Program
DX: C73 Malignant neoplasm of thyroid gland (principal); E55.9 Vitamin D deficiency, unspecified; E03.9 Hypothyroidism, unspecified
CPT/HCPCS: 36415; 82040; 82306; 82310; 84432; 84439; 84443; 86800

== ENCOUNTER 2024-08-24 09:54 | Outpatient (AMB) | payer OTHER, SELFPAY ==
[2024-08-24 10:02] VITALS: BP 150/72; PULSE 68; BMI 26.4
--- NOTE | 2024-08-24 10:02 | MHC.OFFVIS ---
Vital Signs 08/24/24 10:02 Height 5 ft 5 in Weight 158 lb 8.198 oz BMI 26.4 BP 150/72 H Blood Pressure Location Lt brachial Position Sitting Pulse 68 Pulse Source Pulse Oximeter Intake Visit Reasons: Hypothyroidism Intake Note: Patient present today for Hypothyroidism office visit. Human Geography Instructor Required: No Accompanied by: Son Allergies No Known Allergies Allergy (Verified 08/24/24 10:06) Medication List - Last Reconciled 08/24/24 by Faustina Rob MD alcohol swabs (Alcohol Prep Pads) pad topical DAILY blood sugar diagnostic (FreeStyle Lite Strips) As directed cholecalciferol (vitamin D3) 25 mcg PO DAILY lancets (TRUEplus Lancets) As directed levothyroxine (Synthroid) 125 mcg PO DAILY lisinopril 5 mg PO DAILY metformin 500 mg PO BID simvastatin 40 mg PO DAILY sitagliptin phosphate (Januvia) 50 mg PO DAILY HPI Comments Details: 53-year-old female coming in today for follow up of papillary thyroid cancer status post total thyroidectomy on 04/18/[address] Tapan Huston at [facility], with pathology revealing multifocal (4 foci) classic PTC, largest tumor 8 mm in the right lobe, remaining foci ranging between 0.15-4 mm bilaterally, with no ET E/AI/LI, negative margins, no lymph nodes assessment. NU low risk of recurrence for initial risk. Now coming in for follow up. She is here with her son today who is doing all the interpretation and answering the questions. History of PTC in detail Was initially diagnosed with multinodular thyroid in [place] 2020: Apparently she did undergo FNA biopsy there in 2020, but was unsure which nodules were biopsied. Reportedly the results were benign. Thyroid ultrasound from May 2021 showed multiple bilateral thyroid nodules with a left lobe dominant nodule extending into the isthmus measuring 4 point 3 X 2.9 X 5 cm. TR 4 category. Established care with us with Dr. uPentes in January 2022. November/2022: Underwent FNA of the left dominant 5 cm nodule which came back benign [place] category 2 She continued to complain of compressive symptoms hence she was referred to Dr. Tapan Huston at [facility]. 04/18/2024: Underwent total thyroidectomy with Dr. Tapan Huston at [facility] with pathology revealing multifocal classic PTC (4 foci)largest tumor 8 mm in the right lobe, remaining foci ranging between 0.15-4 mm bilaterally, with no ET E/AI/LI, negative margins, no lymph nodes assessment. AJCC stage I (pT1, NX), NU initial low risk of recurrence She also notably has a history of hypothyroidism previously and was on levothyroxine 50 mcg daily. Post surgery she has been started on levothyroxine 112 mcg daily since 04/18/24. She is adherent to her therapy however she has been taking it after breakfast daily. 05/22/24: TSH 6.11, free T4 1.17, thyroglobulin 0.8, thyroglobulin antibodies undetectable She currently denies any numbness or tingling in feet or hands. Denies any perioral numbness. Her vitamin-D level was 7 from December 2022, fortunately no symptoms of hypocalcemia with no parathyroid adenoma removed during surgery. She is not taking any vitamin-D currently. Interval history 05/24/2024: Levothyroxine increased from 112 mcg daily to 125 mcg daily 07/13/2024: TSH 0.31, free T4 1.4, thyroglobulin less than 0.1, TG antibody less than 1 Currently taking 1000 units of vitamin D daily Taking 125 mcg of levothyroxine daily , good adherence and administration Patient currently denies heat or cold intolerance, diarrhea or constipation, hair loss, palpitation, anxiety, weight changes, mood changes, low energy, changes in appearance of eyes or vision changes, tremors, increased diaphoresis or dry skin. ? Patient denies any difficulty swallowing, pain on swallowing or voice changes or difficulty breathing. Patient denies any history of childhood neck radiation. Denies having ever used lithium, amiodarone or biotin supplements. Patient denies any family history of thyroid cancer or thyroid disease. Review of systems Constitutional: no fevers, chills or weight loss HEENT: no changes in vision Cardiac: No chest pain, discomfort or palpitations. Pulmonary: No SOB GI:No abdominal pain, no nausea or vomiting, no anorexia, no blood in stool : no burning micturition, dysuria or increase in urinary frequency Physical exam General: sitting comfortably in no acute distress HEENT: normocephalic/atraumatic,, moist oral mucosa Neck: supple, surgical scar well healed Cardiac: normal heart sounds Pulm: normal breath sounds B/L, no added breath sounds Abd: not distended, no tenderness Extremities: no edema, no signs of myxedema Neuro: AAO x3, Speech: normal, no facial droop, moving all 4 extremities Laboratory Tests 12/22/22 09/05/23 01/30/24 08:40 10:40 08:45 25-OH Vitamin D Total 7.0 TSH 0.76 0.47 0.63 Free T4 1.14 1.13 Thyroglobulin PTH Intact 42 Calcium (PTH Intact) 10.2 Thyroglobulin Antibody 05/22/24 05/22/24 05/22/24 16:00 16:00 16:00 25-OH Vitamin D Total TSH 6.11 H Free T4 1.17 Thyroglobulin 0.8 H 0.8 L PTH Intact Calcium (PTH Intact) Thyroglobulin Antibody <1 <1 07/13/24 08:54 25-OH Vitamin D Total 32.2 TSH 0.31 L Free T4 1.41 Thyroglobulin <0.1 L PTH Intact Calcium (PTH Intact) Thyroglobulin Antibody <1 US THYROID May 2021 CLINICAL INFORMATION: Goiter. COMPARISON: None TECHNIQUE: Linear transducer grayscale and color Doppler examination with attention to the region of the thyroid. FINDINGS: SIZE: Measurements of the thyroid lobes and nodules are given in sagittal, anteroposterior and transverse dimensions respectively. Right Thyroid Lobe: 5.7 x 2.0 x 2.3 cm, volume 13.7 mL. Parenchyma: The gland echotexture is heterogeneous. Thyroid vascularity is normal. Left Thyroid Lobe: 7.7 x 2.9 x 3.0 cm, volume 35.0 mL. Parenchyma: The gland echotexture is heterogeneous. Thyroid vascularity is increased. Isthmus: 0.9 cm in maximum AP dimension. Estimated total number of nodules greater than or equal to 1 cm: 2. Decorating Equipment Setter nodules are described as follows: 1. Location: Left lobe extending into isthmus. Size: 4.3 x 2.9 x 5.0 cm, volume 32.9 mL. Nodule characteristics: Composition: Solid (2). Echogenicity: Isoechoic (1). Shape: Not taller than wide (0). Margins: Lobulated (2). Echogenic Foci: None (0). ACR TI-RADS total points: 5 ACR TI-RADS category: 4 2. Location: Right upper pole. Size: 1.0 x 0.7 x 1.0 cm, volume 0.37 mL. Nodule characteristics: Composition: Solid (2). Echogenicity: Hypoechoic (2). Shape: Not taller than wide (0). Margins: Smooth (0). Echogenic Foci: Punctate echogenic foci (3). ACR TI-RADS total points: 7 ACR TI-RADS category: 5 3. Location: Right mid pole. Size: 0.7 x 0.4 x 0.6 cm, volume 0.07 mL. Nodule characteristics: Composition: Mixed cystic and solid (1). Echogenicity: Hypoechoic (2). Shape: Not taller than wide (0). Margins: Smooth (0). Echogenic Foci: None (0). ACR TI-RADS total points: 3 ACR TI-RADS category: 3 4. Location: Right lower pole/lateral. Size: 0.7 x 0.4 x 0.6 cm, volume 0.09 mL. Nodule characteristics: Composition: Solid/almost completely solid (2). Echogenicity: Hypoechoic (2). Shape: Not taller than wide (0). Margins: Smooth (0). Echogenic Foci: None (0). ACR TI-RADS total points: 4 ACR TI-RADS category: 4 5. Location: Right lower pole/medial. Size: 0.6 x 0.4 x 0.4 cm, volume 0.05 mL. Nodule characteristics: Composition: Cannot be determined (2). Echogenicity: Cannot be determined (1). Shape: Not taller than wide (0). Margins: Smooth (0). Echogenic Foci: Peripheral calcifications (2). ACR TI-RADS total points: 5 ACR TI-RADS category: 5 NODES: No lymphadenopathy is seen in the tissue surrounding the thyroid gland. US/US thyroid IMPRESSION: Enlarged heterogeneous thyroid gland with multiple bilateral nodules. Fine-needle aspiration of the largest nodule in the left lobe extending into the isthmus and partially calcified nodule in the right upper lobe recommended. FOR[facility]LY [facility], [facility] Medical History (Updated 05/24/24 @ 10:48 by Faustina Rob MD) Papillary thyroid carcinoma T2DM (type 2 diabetes mellitus) Vitamin D deficiency Multinodular thyroid Hypothyroidism Surgical History History of thyroid surgery Hx of section Family History Father Unknown family medical history Mother Unknown family medical history Social History Alcohol intake: never Patient Tobacco Use Status: Never used Tobacco Physical Exam Vital Signs: Last Vital Signs Pulse 68 08/24/24 10:02 BP 150/72 H 08/24/24 10:02 BMI result Body Mass Index 26.4 Assessment & Plan Assessment & Plan (1) Hypothyroidism: Code(s): E03.9 - Hypothyroidism, unspecified Category: Medical Qualifiers: Hypothyroidism type: postoperative Qualified Code(s): E89.0 - Postprocedural hypothyroidism Plan: She also has a history of hypothyroidism prior to surgery. Was on levothyroxine 50 mcg daily preoperatively. we can liberalize this goal to 0.1-0.5. 07/13/2024: TSH 0.31, free T4 1.4, thyroglobulin less than 0.1, TG antibody less than 1 Plan: -continue levothyroxine to 125 mcg daily -repeat TSH, free T4, TG and TG antibody today (2) Papillary thyroid carcinoma: Code(s): C73 - Malignant neoplasm of thyroid gland Category: Medical Plan: 53-year-old female coming in today for follow up of papillary thyroid cancer status post total thyroidectomy on 04/18/[address] Tapan Huston at [facility], with pathology revealing multifocal (4 foci) classic PTC, largest tumor 8 mm in the right lobe, remaining foci ranging between 0.15-4 mm bilaterally, with no ET E/AI/LI, negative margins, no lymph nodes assessment. AJCC stage I (pT1, NX) ,NU low risk of recurrence for initial risk. at 5 weeks post surgery labs from 05/22/24, showed thyroglobulin level of 0.8. Undetectable thyroglobulin antibodies. It takes about 6-8 weeks to get a good idea of what her postoperative thyroglobulin level is like. 07/13/2024:labs showed TSH 0.31, free T4 1.4, thyroglobulin less than 0.1, TG antibody less than 1 Given TG level is less than 0.2, this is very reassuring and we can liberalize her TSH goal to 0.1-0.5. Plan: -continue levothyroxine to 125 mcg daily -repeat TSH, free T4, TG and TG antibody levels today and then again prior to follow up in December 2024 -Ordered ultrasound of the neck around the 6 month zuleyka in November 2024 prior to follow up in December 2024 -follow up in December 2024 (3) Vitamin D deficiency: Code(s): E55.9 - Vitamin D deficiency, unspecified Category: Medical Plan: Vitamin-D level noted to be at 7 from December 2022. This should be between 30-60. Start vitamin-D 1000 units daily. Fortunately no parathyroid injury during the thyroidectomy. She denies any signs of hypocalcemia. We will also check a calcium, albumin and vitamin-D level with the next labs. We will also plan to repeat vitamin-D levels 3 months after supplementation. Plan: -start vitamin-D 1000 units daily -check calcium, albumin, vitamin-D level in 6 weeks with the next set blood work -we will also need repeat vitamin-D levels in 3 months which would be prior to her next follow up Plan I spent 30 minutes in reviewing the record, seeing the patient and documenting in the medical record. Orders: Orders Thyroglobulin Today C73 - Malignant neoplasm of thyroid gland, E89.0 - Postprocedural hypothyroidism Thyroglobulin Tumor Marker Today C73 - Malignant neoplasm of thyroid gland, E89.0 - Postprocedural hypothyroidism Thyroid Stimulating Hormone Today C73 - Malignant neoplasm of thyroid gland, E89.0 - Postprocedural hypothyroidism Free T4 (Free Thyroxine) Today C73 - Malignant neoplasm of thyroid gland, E89.0 - Postprocedural hypothyroidism US soft tiss head and/or neck 11/08/24 C73 - Malignant neoplasm of thyroid gland Thyroglobulin Antibodies Today C73 - Malignant neoplasm of thyroid gland, E89.0 - Postprocedural hypothyroidism Medications: Refilled levothyroxine (Synthroid) 125 mcg PO DAILY 30 tabs 7RF Patient Instructions: Do blood work today , we will communicate results over the phone Repeat blood work instructions will be provided over the phone Continue levothyroxine 125 mcg daily Do US of the neck in beginning of November 2024, someone will call you to schedule this follow up beginning of December 2024 Coding Level of Care Code Est Pt Level 4 (23418) Complex EM visit Add On G2211 Diagnoses Postoperative hypothyroidism E89.0 Hypothyroidism type: postoperative Papillary thyroid carcinoma C73 Vitamin D deficiency E55.9 Time Spent (min) 30
== END 2024-08-24 10:55 | disposition home or self-care (01) ==
PROVIDERS: PCP Internal Medicine; Visit Provider Student in an Organized Health Care Education/Training Program
DX: E89.0 Postprocedural hypothyroidism (principal); C73 Malignant neoplasm of thyroid gland; E55.9 Vitamin D deficiency, unspecified
CPT/HCPCS: 99214; G2211

== ENCOUNTER → 2024-08-24 09:54 | Outpatient (BNVA) | payer OTHER, SELFPAY | PROVIDERS: PCP Internal Medicine; Visit Provider Student in an Organized Health Care Education/Training Program | DX: E89.0 Postprocedural hypothyroidism (principal); E55.9 Vitamin D deficiency, unspecified; C73 Malignant neoplasm of thyroid gland | CPT/HCPCS: 99212 ==

== ENCOUNTER 2024-10-25 16:20 | Outpatient (REF) | payer OTHER, SELFPAY ==
[2024-10-25 17:58] LABS: Free T4 (Free Thyroxine) 1.57 ng/dL (0.71-1.85); Thyroid Stimulating Hormone 0.11 uIU/mL (0.32-4.0)
== END 2024-10-25 16:21 | disposition home or self-care (01) ==
LOC: HO.LAB 16:20
PROVIDERS: PCP Internal Medicine; Visit Provider Student in an Organized Health Care Education/Training Program
DX: E89.0 Postprocedural hypothyroidism (principal); C73 Malignant neoplasm of thyroid gland
CPT/HCPCS: 36415; 84439; 84443

== ENCOUNTER 2024-11-08 12:57 | Outpatient (REF) | payer OTHER, SELFPAY ==
--- NOTE | ~2024-11-08 | US_ITS ---
EXAMINATION: US HEAD NECK SOFT TISSUE HISTORY: C73 - Malignant neoplasm of thyroid gland COMPARISON: Comparison is made with the prior examination dated 05/13/2021. FINDINGS: Sonographic examination of the neck was performed. The patient is status post thyroidectomy. Multiple normal lymph nodes are identified demonstrating thin cortices and fatty burton. No enlarged or abnormal lymph nodes are identified. US/US soft tiss head and/or neck IMPRESSION: No evidence of cervical lymphadenopathy. Electronically signed by: Gerhard Campbell MD 11/09/2024 08:12 AM EDT
--- OUTSIDE RECORDS SUMMARY | 2024-11-08 14:08 | XMS_ITS | Encounter Summary ---
Author Organization [employer] Address [address] [place] [address] Care Team Providers Care Powder Mill Operator Name Role Phone Isai Barajas MD Primary Care Provider [phone] Reason for Visit * Reason Onset Date Comments Med Refill 03/01/2024 Encounter Details Date Type Department Care Team ([facility] st Contact Info) Description 03/01/2024 Telephone [facility] [address] [place] [address] Isai Barajas MD [address] [place] [address] Med Refill Social History Tobacco Use Types Packs/Day Years Used Date Smoking Tobacco: Never Passive Smoke Exposure: Never Smokeless Tobacco: Never Alcohol Use Standard Drinks/Week Comments Never 0 (1 standard drink = 0.6 oz pur e alcohol) Depression Answer Date Recorded Patient Health Questionnaire-9 Score 0 02/02/2024 Patient Health Questionnaire-9 Score 0 02/02/2024 Last PHQ-9: Questionnaire Data Not on file 0 02/02/2024 Depression Answer Date Recorded Patient Health Questionnaire-2 Score 0 02/02/2024 Comments Unknown Sex and Gender Information Value Date Recorded Sex Assigned at Female 06/07/2022 10:39 AM EDT Legal Sex Female 10:39 AM EDT Gender Identity Female 06/07/2022 10:39 AM EDT Sexual Orientation Straight 06/07/2022 10 :39 AM EDT documented as of this encounter Miscellaneous Notes * Telephone Encounter - Celine Gonzalez RN - 03/01/2024 3:43 PM EDT Pt son walked in this afternoon regarding message below. Pt was seen on 02/02/24 with PCP and had Metformin increased from 500mg ER BID to 1000mg ER BID. Son states pt received rx for 500 2tabs daily instead and pt will run out early if taking BID as they were instructed. Confirmed with pharmacy andlast OV on what was sent vs what was indicated in the last OV. Son informed if pt still has 500mg ER left to take 2 tabs BID until corrected rx is sent to pharmacy. Son agrees with plan and will f/u with pharmacy tomorrow. PCP off, please advise if new rx can be queued. * Telephone Encounter - Patti Joy - 03/01/2024 10:22 AM EDT Tc from Son requesting a call in regards to medication metformin sons states pharmacy gave wrong script gave old script of 500 mg tablets son is asking what he do in the mean time due to pt not beingdue yet for refill. documented in this encounter Plan of Treatment Upcoming Encounters Date Type Department Care Team (Late st Contact Info) Description 11/23/2024 9:00 AM EDT Office Visit [facility] [address] [place] [address] Tarka Yennifer, OD [address] [place] [address] documented as of this encounter Visit Diagnoses Not on filedocumented in this encounter Additional Health Concerns Assessment Noted Time PHQ-9 Depression Total Score: 0 02/02/20 24 10:39 AM EDT documented as of this encounter Care Teams Powder Mill Operator Relationship Specialty Start Date End Date Isai Barajas MD [address] [place] [id number] PCP - General Internal Medicine 05/20/21 documented as of this encounter
--- OUTSIDE RECORDS SUMMARY | 2024-11-08 14:08 | XMS_ITS | Encounter Summary ---
Author Organization [employer] Address [address] [place] [address] [address] [place] [address] Care Team Providers Care Fermenter Wine Name Role Phone Isai Barajas MD Primary Care Provider [phone] Encounter Details Date Type Department Care Team (Late Contact Info) Description 05/04/2024 Orders Only [facility] [address] [place], [place] [phone] Provider, MD Sharmin Social History Tobacco Use Types Packs/Day Years [...] AM EDT documented as of this encounter Plan of Treatment Upcoming Encounters Date Type Department Care Team (Late Contact Info) Description 11/23/2024 9:00 AM EDT Office Visit [facility] [address] [place] [address] Yennifer Urias, OD [address] [place] [address] documented as of this encounter Procedures Procedure Name Priority Date/Time Associated Diagnosis Comments SURGICAL PATHOLOGY Routine 04/18/2024 1:26 PM EDT documented in this encounter Results * Surgical Pathology (04/18/2024 1:26 PM EDT) us Historical Provider LAB PATHOLOGY ORDERABLES Final Result documented in this encounter Visit Diagnoses Not on filedocumented in this encounter Additional Health Concerns Assessment Noted Time PHQ-9 Depression Total Score: 0 02/02/20 24 10:39 AM EDT documented as of this encounter Care Teams Fermenter Wine Relationship Specialty Start Date End Date Isai Barajas MD [address] [place] [id number] PCP - General Internal Medicine 05/20/21 documented as of this encounter
--- OUTSIDE RECORDS SUMMARY | 2024-11-08 14:08 | XMS_ITS | Encounter Summary ---
Author Organization [employer] Address [address] [place] [address] Care Team Providers Care Upper Stitcher Name Role Phone Isai Barajas MD Primary Care Provider [phone] Reason for Visit * Reason Onset Date Comments Durable Medical Equipment 01/09/2024 Encounter Details Date Type Department Care Team (Late st Contact Info) Description 01/09/2024 Telephone [facility] [address] [place] [address] Isai Barajas MD [address] [place], [place] [phone] Durable Medical Equipment Social History Tobacco Use Types Packs/Day Years Used Date Smoking Tobacco: Never Assessed Comments Unknown Sex and Gender Information Value Date Recorded Sex Assigned at Female 06/07/2022 10:39 AM EDT Legal Sex Female 10:39 AM EDT Gender Identity Female 06/07/2022 10:39 AM EDT Sexual Orientation Straight 06/07/2022 10 :39 AM EDT documented as of this encounter Miscellaneous Notes * Telephone Encounter - Davian Garcia - 01/09/2024 11:07 AM EDT Tc from the patient son calling to request a new glucose monitor states previous one is broken documented in this encounter Plan of Treatment Upcoming Encounters Date Type Department Care Team (Late st Contact Info) Description 11/23/2024 9:00 AM EDT Office Visit [facility] [address] [place] [address] Yennifer Urias, XAVI [address] [place] [address] documented as of this encounter Visit Diagnoses Not on filedocumented in this encounter Care Teams Upper Stitcher Relationship Specialty Start Date End Date Isai Barajas MD [address] [place] [id number] PCP - General Internal Medicine 05/20/21 documented as of this encounter
--- OUTSIDE RECORDS SUMMARY | 2024-11-08 14:08 | XMS_ITS | Encounter Summary ---
Author Organization [employer] [facility] Address [address] [place] [address] Care Team Providers Care Automotive Metalsmith Name Role Phone Isai Barajas MD Primary Care Provider [phone] Reason for Visit * Reason Comments Med Refill Encounter Details Date Type Department Care Team (Late Contact Info) Description 01/11/2024 Refill [facility] [address] [place] [address] Isai Barajas MD [address] [place], [place] [phone] Other specified hypothyroidism; Type 2 diabetes mellitus without complications (CMS/HCC); Essential (primary) hypertension; Mixed hyperlipidemia Social History Tobacco Use Types Packs/Day Years Used Date Smoking Tobacco: Never Passive Smoke Exposure: Never Smokeless Tobacco: Never Alcohol Use Standard Drinks/Week Comments Never 0 (1 standard drink = 0.6 oz pur e alcohol) Comments Unknown Sex and Gender Information Value Date Recorded Sex Assigned at Female 06/07/2022 10:39 AM EDT Legal Sex Female 10:39 AM EDT Gender Identity Female 06/07/2022 10:39 AM EDT Sexual Orientation Straight 06/07/2022 10 :39 AM EDT documented as of this encounter Plan of Treatment Upcoming Encounters Date Type Department Care Team (Late Contact Info) Description 11/23/2024 9:00 AM EDT Office Visit [facility] [address] [place] [address] Yennifer Urias, OD [address] [place] [address] documented as of this encounter Visit Diagnoses Diagnosis Other specified hypothyroidism Type 2 diabetes mellitus without complications ([facility]) Essential (primary) hypertension Unspecified essential hypertension Mixed hyperlipidemia documented in this encounter Care Teams Automotive Metalsmith Relationship Specialty Start Date End Date Isai Barajas MD [address] [place] [id number] PCP - General Internal Medicine 05/20/21 documented as of this encounter
--- OUTSIDE RECORDS SUMMARY | 2024-11-08 14:08 | XMS_ITS | Clinical Summary ---
Author Organization [employer] Address [address] [facility] [address] [place] [address] Care Team Providers Care Drying Machine Receiver Name Role Phone Isai Barajas MD Primary Care Provider [phone]- [phone] Allergies No known active allergies Medications glucose blood (FreeStyle InsuLinx Test) test strip Use 1 by To Skin route 2 times every day 1 Active FREESTYLE LITE test stripIndications:T ype 2 diabetes mellitus without complication, without long-term current use of insulin (CMS/[facility]) Use to test blood sugar 2 times daily 100 each 4 01/09/20 25 Active Lancets miscIndications:Ty pe 2 diabetes mellitus without complication, without long-term current use of insulin (CMS/HCC) Use to test blood sugar 2 times daily 100 each 4 Active Alcohol Swabs 70 % padsIndications:Ty pe 2 diabetes mellitus without complication, without long-term current use of insulin (CMS/[facility]) Use to test blood sugar 2 times daily 100 each 4 Active Blood Glucose Monitoring Suppl (FreeStyle [place] Lite) w/Device kitIndications:Typ e 2 diabetes mellitus without complication, without long-term current use of insulin (CMS/[facility]) Use to test blood sugar 2 times daily 1 kit 4 Active lisinopril 10 MG tabletIndications: Primary hypertension Take 1 tablet (10 mg) by mouth Once per day. 30 tablet 4 02/02/20 25 Active metFORMIN (Glucophage) 1000 MG tablet Take 1 tablet (1,000 mg) by mouth with breakfast and with evening meal. 60 tablet 4 03/01/20 25 Active levothyroxine (Synthroid, Levoxyl) 50 MCG tabletIndications: Other specified hypothyroidism TAKE ONE TABLET EVERY DAY 30 tablet 4 Active SITagliptin (Januvia) 50 MG tabletIndications: Type 2 diabetes mellitus without complications (CMS/HCC) TAKE ONE TABLET BY MOUTH EVERY DAY 30 tablet 3 4 Active simvastatin (Zocor) 40 MG tabletIndications: Mixed hyperlipidemia TAKE ONE TABLET BY MOUTH EVERY DAY 30 tablet 3 4 Active Active Problems Problem Noted Date Diagnosed Date Type 2 diabetes mellitus 01/09/2024 Hypertensive disorder 01/09/2024 Hypercholesterolemia 04/14/2021 Encounters Date Type Department Care Team Description 10/25/2024 Orders Only GENERIC EXTERNAL DATA DEPARTMENT Provider, Generic External Data from Last 3 Months Immunizations Name Administration Dates Next Due Pneumococcal Conjugate PCV 20 02/02/2024 Zoster, Recombinant 02/02/2024 Family History Medical History Relation Name Comments Diabetes Mother Relation Name Status Comments Mother Social History Tobacco Use Types Packs/Day Years [...] Orientation Straight 06/07/2022 10 :39 AM EDT Last Filed Vital Signs Vital Sign Reading Time Taken Comments Blood Pressure 154/75 07/10/2024 2:33 PM EST Pulse 90 07/10/2024 2:33 PM EST Temperature 36.5 ??C (97.7 ??F) 07/10/2024 2:33 PM ES T Respiratory Rate 16 07/10/2024 2:33 PM EST Oxygen Saturation 99% 07/10/2024 2:33 PM EST Inhaled Oxygen Concentration - - Weight 71.8 kg (158 lb 3.2 oz) 07/10/2024 2:33 P M EST Height 157.5 cm (5' 2 ) 07/10/2024 2:33 PM EST Body Mass Index 28.94 07/10/2024 2:33 PM EST Plan of Treatment Upcoming Encounters Date Type Department Care Team (Late st Contact Info) Description 11/23/2024 9:00 AM EDT Office Visit [facility] [address] [place] [address] Yennifer Urias, OD [address] [place] [address] Health Maintenance Due Date Last Done Comments CT Colonography 1968 Colonoscopy 1968 Colorectal Cancer Screening 1968 FIT DNA/Cologuard 1968 FIT 1968 FOBT 1968 HIV Screening 1968 SDOH Screening 1968 Sigmoidoscopy 1968 Diabetes: Foot Exam 1978 Alcohol/Substance Use Screening 1980 Hepatitis C Screening 1986 DTaP/Tdap/Td Vaccines (1 - Tdap) 1987 Hepatitis B Vaccines (1 of 3 - 19+ 3-dose series) 1987 Zoster Vaccines (2 of 2) 03/29/2024 02/02/2024 COVID-19 Vaccine (1 - season) 2024 Influenza Vaccine (#1) 2024 Pap Smear 05/05/2024 05/05/2021 Diabetes: Hemoglobin A1C 01/08/2025 07/10/2024, 06/0 12/2023 Diabetes: Urine Protein Screening 01/29/2025 01/30/2024, 04/08/2021 Lipid Panel 01/29/2025 01/30/2024, 04/08/2021 Depression Screening 02/01/2025 02/02/2024, 02/02/20 Tobacco Screening 07/10/2025 07/10/2024 Mammogram 02/07/2026 02/08/2024 Cervical Cancer Screening 05/05/2026 HPV/Cotest 05/05/2026 05/05/2021 Eye Exam 05/25/2026 05/25/2024, 05/08, 05/25/2024, Additional history exists RSV Patients and Patients Aged 60 years or older (1 - 1-dose 75+ series) 2043 Pneumococcal Vaccine: 50+ Years Completed 02/02/2024 HIB Vaccines Aged Out No longer eligi ble based on patient's age to complete this topic HPV Vaccines Aged Out No longer eligi ble based on patient's age to complete this topic Hepatitis A Vaccines Aged Out No long er eligible based on patient's age to complete this topic IPV Vaccines Aged Out No longer eligi ble based on patient's age to complete this topic Meningococcal Vaccine Aged Out No antwon chanel eligible based on patient's age to complete this topic RSV under 20 months Aged Out No longe r eligible based on patient's age to complete this topic Rotavirus Vaccines Aged Out No longer eligible based on patient's age to complete this topic Procedures Procedure Name Priority Date/Time Associated Diagnosis Comments TSH Routine 10/25/2024 4:56 PM EDT T4, FREE Routine 10/25/2024 4:56 PM EDT POCT GLYCATED HEMOGLOBIN, TOTAL Routine 07/10/2024 2:36 PM EST Type 2 diabetes mellitus without complication, without long-term current use of insulin ([facility]/HCC) BI MAMMOGRAM SCREENING TOMOSYNTHESIS BILATERAL Routine 02/08/2024 9:30 AM EDT Breast cancer screening by mammogram ALBUMIN, RANDOM URINE W/CREATININE Routine 01/30/2024 8:50 AM EDT Type 2 diabetes mellitus without complication, without long-term current use of insulin (CMS/HCC) LIPID PANEL, STANDARD Routine 01/30/2024 8:45 AM EDT Type 2 diabetes mellitus with hyperglycemia, without long-term current use of insulin (CMS/HCC) HPV MRNA E6/E7 Routine 05/05/2021 11:15 AM EDT THINPREP PAP Routine 05/05/2021 11:15 AM EDT from Last 3 Months or Most Recently Relevant to Health Maintenance Results * (ABNORMAL) TSH (10/25/2024 4:56 PM EDT) Thyroid Stimulating Hormone 0.11(L) 0.32 - 4.0 uIU/mL [facility] Comment:TSH 3rd Generation ( [facility]) 10/25/2024 4:56 PM EDT 10/25/2024 4:56 PM EDT Generic External Data Provider LAB BLOOD ORDERAB LES Final Result Performing Organization Address City/[facility]/ZIP Co de Phone Number [facility] [address] [place] [phone] * T4, Free (10/25/2024 4:56 PM EDT) Free T4 (Free Thyroxine) 1.57 0.71 - 1.85 ng/dL [facility] 10/25/2024 4:56 PM EDT 10/25/2024 4:56 PM EDT Generic External Data Provider LAB BLOOD ORDERAB LES Final Result Performing Organization Address City/[facility]/ZIP Co de Phone Number [facility] [address] [place] [phone] * (ABNORMAL) POCT A1C (07/10/2024 2:36 PM EST) Hemoglobin A1C 6.8(A) 4.0 - 6.0 % QC Media Lot # Comment:[id number] Lot# Expiration Date Comment:03/08/2026 Blood 07/10/2024 2:36 PM EST Isai Barajas MD POINT OF CARE TEST ENTER/ED IT ORDERABLES Final Result * BI Mammogram Screening Tomosynthesis Bilateral (02/08/2024 9:30 AM EDT) Anatomical Region Laterality Modality Breast Bilateral Mammography 02/08/2024 9:30 AM EDT Narrative 03/07/2024 2:35 PM EDT ? [facility] ? [address] ?[place], [place] [address] ? Mammography Report ? Signed ? Patient: Nagash,Aajph ?MR#: [id number] ? : 1970 ?Acct:[id number] ? Age/Sex: 53 / F ?ADM Date: 02/08/24 ? Loc: HO.MAMMO ? Attending Dr: Brooklynn Fleming MD ? Ordering Physician: Brooklynn Fleming MD ?Results: 1Nega ?? tive ? Date of Service: 02/08/24 ?Follow Up: 1 Year From Orig ?? inal Mammogram ? Procedure(s): MM tomosynthesis screening BI ?? Accession Number(s): [id number] ? cc: Isai Barajas MD; Brooklynn Fleming MD ? EXAMINATION: ?? MM SCREENING DIGITAL BREAST TOMOSYNTHESIS, BILATERAL ? CLINICAL INFORMATION: ? Screening. Asymptomatic. ? COMPARISON: ?? Mammography: This is a baseline mammogram. TECHNIQUE: ?? Digital breast tomosynthesis is performed in both the craniocaudal and ?? mediolateral oblique views along with computer-aided detection (CAD). ?? Synthesized 2D images are generated from the tomosynthesis. ? FINDINGS: ?? There are scattered areas of fibroglandular density (ACR BI-RADS breast ?? composition Category b). ? There are no significant masses, abnormal calcifications, or other ?? abnormalities. ? MM/MM tomosynthesis screening BI ?? IMPRESSION: ?? No mammographic evidence of malignancy. ? ASSESSMENT: ? BI-RADS BI-RADS 1 - Negative ? RECOMMENDATION: ?? Routine annual mammography screening. ? 1 year F/U ? This examination should not preclude the clinical evaluation of a ?? suspicious palpable abnormality. ? This patient's information was entered into a reminder system with a ?? target due date for their next mammogram. ? Dictated By: ?Roya Thomason MD ? Signed By: ?<Electronically signed by Roya Thomason MD in OV> ? 03/07/24 1431 ? DD/ 0930 ? TD/TT: ? Rn Maternity: ? Procedure Note Anisha, Image - 03/07/2024 [facility] [address] [place] [address] Mammography Report Signed Patient: Paula Morrowph#: [id number] : 1970Acct:[id number] Age/Sex: 53 / FADM Date: 02/08/24 Loc: HO.MAMMO Attending Dr: Brooklynn Fleming MD Ordering Physician: Brooklynn Fleming MDResults: 1Nega tive Date of Service: 02/08/24Follow Up: 1 Year From Orig inal Mammogram Procedure(s): MM tomosynthesis screening BI Accession Number(s): [id number] cc: Isai Barajas MD; Brooklynn Fleming MD EXAMINATION: MM SCREENING DIGITAL BREAST TOMOSYNTHESIS, BILATERAL CLINICAL INFORMATION: Screening. Asymptomatic. COMPARISON: Mammography: This is a baseline mammogram. TECHNIQUE: Digital breast tomosynthesis is performed in both the craniocaudal and mediolateral oblique views along with computer-aided detection (CAD). Synthesized 2D images are generated from the tomosynthesis. FINDINGS: There are scattered areas of fibroglandular density (ACR BI-RADS breast composition Category b). There are no significant masses, abnormal calcifications, or other abnormalities. MM/MM tomosynthesis screening BI IMPRESSION: No mammographic evidence of malignancy. ASSESSMENT: BI-RADS BI-RADS 1 - Negative RECOMMENDATION: Routine annual mammography screening. 1 year F/U This examination should not preclude the clinical evaluation of a suspicious palpable abnormality. This patient's information was entered into a reminder system with a target due date for their next mammogram. Dictated By: Roya Thomason MD Signed By: <Electronically signed by Roya Thomason MD in OV> 03/07/24 1431 DD/ 09 TD/TT: Rn Maternity: us Brooklynn Fleming MD IMG BI PROCEDURES Final Resul t * Albumin, Random Urine W/Creatinine (01/30/2024 8:50 AM EDT) Creatinine, Urine 76.90 mg/dL [facility] Microalbumin Urine 9.0 mg/L [facility] Microalbum Creatinine Ratio Ur 11.7 <30 ug/mg cr [facility] Comment:Albumin/Creatinine R atio Reference Ranges: Normal: < 30 ug/mg creatinine Microalbuminuria: 30 - 300 ug/mg creatinineClinical Albuminuria: > 300 ug/mg creatinine 01/30/2024 8:50 AM EDT 01/30/2024 1:06 PM EDT us Brooklynn Fleming MD LAB URINE ORDERABLES Final Re sult [facility] [address] [place] [phone] * (ABNORMAL) Lipid Panel, Standard (01/30/2024 8:45 AM EDT) Triglycerides 154(H) <150 mg/dL [facility] Comment:Desirable Triglyceri de: less than 150 mg/dLBorderline High Triglyceride 150-199 mg/dLHigh Triglyceride: 200-499 mg/dLVery High Triglyceride: greater than or equal to 5OO mg/dL Cholesterol 169 <200 mg/dL [facility] Comment:Desirable Cholestero l: less than 200 mg/dLBorderline High Cholesterol: 200-239 mg/dLHigh Cholesterol: greater than 239 mg/dL LDL Cholesterol Calculated 92 <100 mg/dL [facility] Comment:Desirable LDL: less than 100 mg/dLNear Optimal/Above Optimal LDL: 110- 129 mg/dLBorderline High LDL: 130-159 mg/dLHigh LDL: 160-189 mg/dLVery High LDL: greater than or equal to 190 mg/dL HDL Cholesterol 47 >40 mg/dL [facility] Comment:Desirable HDL: great er than 40 mg/dL Note: This HDL assay may give artificially low results in patients with liver disease. Blood Venous blood specimen / Unknown 01/30/2024 8:45 AM EDT 01/30/2024 1:12 PM EDT us Brooklynn Fleming MD LAB BLOOD ORDERABLES Final Re sult [facility] [address] [place] [phone] * THINPREP PAP (05/05/2021 11:15 AM EDT) Clinical Information: None given [facility] COMMENT SEE COMMENT [facility] Comment: EXPLANATORY NOTE: ? The Pap is a screening test for cervical cancer. It is ?? not a diagnostic test and is subject to false negative ?? and false positive results. It is most reliable when a ?? satisfactory sample, regularly obtained, is submitted ?? with relevant clinical findings and history, and when ?? the Pap result is evaluated along with historic and ?? current clinical information. ?? Shooter Helper : SEE COMMENT [facility] Comment: STEFANY SCOTT(ASCP) CT screening location: [address] ??[address] Interpretation/R esult: Negative for intraepithelial lesion or malignancy. [facility] LMP: NONE [facility] Prev. BX: NONE [facility] Prev. PAP: NONE [facility]IV[facility] SOURCE: None given [facility] Statement Of Adequacy: SEE COMMENT [facility] Comment: Satisfactory for evaluation. Endocervical/transformation zone component present. Age and/or menstrual status not provided 05/05/2021 11:1 5 AM EDT Deneen Arshad [facility] PATHOLOGY ORDERABLES Final Result Performing Organization Address [facility] Co de Phone Number [facility] [address] * HPV mRNA E6/E7 (05/05/2021 11:15 AM EDT) HPV nRNA E6/E7 Not Detected Not Detected [facility] Comment: Methodology: Elastic Attacher Chainstitch-Mediated Amplification This assay detects E6/E7 viral messenger RNA (mRNA) from 14 high-risk HPV types (16,18,31,33,35,39,45,51,52,56,58,59,66,68). ? The analytical performance characteristics of this assay have been determined by [employer]. The modifications have not been cleared or approved by the FDA. This assay has been validated pursuant to the CLIA regulations and is used for clinical purposes. ?? For additional information, please refer to http://education.TAXI5.pl.FiberLight/faq/AKM474y9 (This link if provided for information/ educational purposes only.) 05/05/2021 11:1 5 AM EDT Deneen HARVEY LAB BLOOD ORDERABLES Shahana l Result Performing Organization Address [facility] Co de Phone Number [facility] [address] from Last 3 Months or Most Recently Relevant to Health Maintenance [place] [address] [place] [address] Care Teams Drying Machine Receiver Relationship Specialty Start Date End Date Isai Barajas MD [address] [place] [address] PCP - General Internal Medicine 05/20/21
--- OUTSIDE RECORDS SUMMARY | 2024-11-08 14:08 | XMS_ITS | Encounter Summary ---
Author Organization [employer] Address [address] [address] Care Team Providers Care Linux Admin Name Role Phone Isai Barajas MD Primary Care Provider [phone]- [phone] Reason for Visit * Reason Onset Date Comments Med Refill 01/09/2024 Encounter Details Date Type Department Care Team (Late st Contact Info) Description 01/09/2024 Telephone [facility] [address] [place] [address] Isai Barajas MD [address] [place], [place] [phone] Med Refill Social History Tobacco Use Types [...] Telephone Encounter - Celine Gonzalez RN - 01/11/2024 9:44 AM EDT Appt scheduled with [facility] provider as pt has not seen a provider in almost 3 years. Med refills couldnot be filled at this time. * Telephone Encounter - Roxanna Farmer LPN - 01/09/2024 11:14 AM EDT Medications not pended patient last seen 04/07/21. Please review and advise. * Telephone Encounter - Davian Garcia - 01/09/2024 11:03 AM EDT TC from pt requesting medication refill. Medications needing refill : Januvia 50 MG tablet , levothyroxine (Synthroid, Levoxyl) 50 MCG tablet ,lisinopril 5 MG tablet , metFORMIN (Glucophage) 500 MG tablet , simvastatin (Zocor) 40 MG tablet To be sent to: [facility] - [place], [place] - [address] [place] [address] documented in this encounter Plan of Treatment Upcoming Encounters Date Type Department Care Team (Late st Contact Info) Description 11/23/2024 9:00 AM EDT Office Visit [facility] [address] [place] [address] Yennifer Urias, OD [address] [place] [address] documented as of this encounter Visit Diagnoses Not on filedocumented in this encounter Care Teams Linux Admin Relationship Specialty Start Date End Date Isai Barajas MD [address] [place] [address] PCP - General Internal Medicine 05/20/21 documented as of this encounter
--- OUTSIDE RECORDS SUMMARY | 2024-11-08 14:08 | XMS_ITS | Encounter Summary ---
Author Organization [employer] Address [address] [place] [address] Care Team Providers Care Database Developer Name Role Phone Isai Barajas MD Primary Care Provider [phone]- [phone] Encounter Details Date Type Department Care Team ([facility] Contact Info) Description 01/09/2024 Orders Only [facility] [address] [place] [address] Isai Barajas MD [address] [place] [address] Type 2 diabetes mellitus without complication, without long-term current use of insulin ([facility]) (Primary Dx) Social History Tobacco Use Types Packs/Day Years [...] Description 11/23/2024 9:00 AM EDT Office Visit [facility] [address] [place], [place] [phone] Yennifer Urias OD [address] [place] [address] documented as of this encounter Procedures Procedure Name Priority Date/Time Associated Diagnosis Comments ALBUMIN, RANDOM URINE W/CREATININE Routine 01/30/2024 8:50 AM EDT Type 2 diabetes mellitus without complication, without long-term current use of insulin ([facility]) documented in this encounter Results * Albumin, Random Urine W/Creatinine (01/30/2024 8:50 AM EDT) Creatinine, Urine 76.90 mg/dL [facility] Microalbumin Urine 9.0 mg/L [facility] Microalbum Creatinine Ratio Ur 11.7 <30 ug/mg cr [facility] Comment:Albumin/Creatinine R atio Reference Ranges: Normal: < 30 ug/mg creatinine Microalbuminuria: 30 - 300 ug/mg creatinineClinical Albuminuria: > 300 ug/mg creatinine 01/30/2024 8:50 AM EDT 01/30/2024 1:06 PM EDT us Brooklynn Fleming MD LAB URINE ORDERABLES Final Re sult [facility] [address] [place] [phone] documented in this encounter Visit Diagnoses Diagnosis Type 2 diabetes mellitus without complication, without long-term current use of insulin ([facility])- Primary documented in this encounter Care Teams Database Developer Relationship Specialty Start Date End Date Isai Barajas MD [address] [place] [phone] PCP - General Internal Medicine 05/20/21 documented as of this encounter
== END 2024-11-08 12:58 | disposition home or self-care (01) ==
LOC: HO.US 12:57
PROVIDERS: PCP Internal Medicine; Visit Provider Student in an Organized Health Care Education/Training Program
DX: C73 Malignant neoplasm of thyroid gland (principal)
CPT/HCPCS: 76536

== ENCOUNTER → 2024-11-08 13:01 | Outpatient (BNV) | payer OTHER, SELFPAY | PROVIDERS: PCP Internal Medicine; Visit Provider Radiology Diagnostic Radiology | DX: E89.0 Postprocedural hypothyroidism (principal); Z85.850 Personal history of malignant neoplasm of thyroid | CPT/HCPCS: 76536 ==

== ENCOUNTER 2024-12-10 09:50 | Outpatient (AMB) | payer OTHER, SELFPAY ==
[2024-12-10 10:02] VITALS: BP 158/74; PULSE 68; O2SAT 98; BMI 26.2
--- NOTE | 2024-12-10 10:02 | A.OFFVIS_ITS ---
Vital Signs 3 12/10/24 10:02 Height 5 ft 5 in Weight 157 lb 6.561 oz BMI 26.2 BP 158/74 H Blood Pressure Location Lt brachial Position Sitting Pulse 68 Pulse Source Pulse Oximeter Pulse Oximetry (%) 98 Oxygen Delivery Method Room Air Intake Visit Reasons: Hypothyroidism Intake Note: Patient present today for Hypothyroidism office visit. Car Loader Required: No Accompanied by: Son Allergies No Known Allergies Allergy (Verified 12/10/24 10:07) Medication List - Last Reconciled 12/10/24 by Faustina Rob MD alcohol swabs (Alcohol Prep Pads) pad topical DAILY blood sugar diagnostic (FreeStyle Lite Strips) As directed cholecalciferol (vitamin D3) 25 mcg PO DAILY lancets (TRUEplus Lancets) As directed levothyroxine 150 mcg PO DAILY lisinopril 10 mg PO DAILY metformin 500 mg PO BID simvastatin 40 mg PO DAILY sitagliptin phosphate (Januvia) 50 mg PO DAILY HPI Comments Details: 53-year-old female coming in today for follow up of papillary thyroid cancer status post total thyroidectomy on 04/18/[address] Tapan Huston at [facility], with pathology revealing multifocal (4 foci) classic PTC, largest tumor 8 mm in the right lobe, remaining foci ranging between 0.15-4 mm bilaterally, with no ET E/AI/LI, negative margins, no lymph nodes assessment. NU low risk of recurrence for initial risk. Now coming in for follow up. She is here with her son today who is doing all the interpretation and answering the questions. History of PTC in detail Was initially diagnosed with multinodular thyroid in [place] 2020: Apparently she did undergo FNA biopsy there in 2020, but was unsure which nodules were biopsied. Reportedly the results were benign. Thyroid ultrasound from May 2021 showed multiple bilateral thyroid nodules with a left lobe dominant nodule extending into the isthmus measuring 4 point 3 X 2.9 X 5 cm. TR 4 category. Established care with us with Dr. Puentes in January 2022. November/2022: Underwent FNA of the left dominant 5 cm nodule which came back benign [place] category 2 She continued to complain of compressive symptoms hence she was referred to Dr. Tapan Huston at [facility]. 04/18/2024: Underwent total thyroidectomy with Dr. Tapan Huston at [facility] with pathology revealing multifocal classic PTC (4 foci)largest tumor 8 mm in the right lobe, remaining foci ranging between 0.15-4 mm bilaterally, with no ET E/AI/LI, negative margins, no lymph nodes assessment. AJCC stage I (pT1, NX), NU initial low risk of recurrence She also notably has a history of hypothyroidism previously and was on levothyroxine 50 mcg daily. Post surgery she has been started on levothyroxine 112 mcg daily since 04/18/24. She is adherent to her therapy however she has been taking it after breakfast daily. 05/22/24: TSH 6.11, free T4 1.17, thyroglobulin 0.8, thyroglobulin antibodies undetectable She currently denies any numbness or tingling in feet or hands. Denies any perioral numbness. Her vitamin-D level was 7 from December 2022, fortunately no symptoms of hypocalcemia with no parathyroid adenoma removed during surgery. She was started on vitamin D 1000 units daily in May 2024. Vitamin-D level at 32 from July 2024. 05/24/2024: Levothyroxine increased from 112 mcg daily to 125 mcg daily 07/13/2024: TSH 0.31, free T4 1.4, thyroglobulin less than 0.1, TG antibody less than 1 Interval history 08/24/2024: TSH 5.38, free T4 1.15, TG 0.6, TG antibody less than 1 08/29/2024: Levothyroxine increased from 125 mcg daily to 150 mcg daily 10/25/2024: TSH 0.11, free T4 1.57 11/08/2024: Ultrasound of the neck, I reviewed the images myself, it did not show any abnormal lymph nodes Currently taking 1000 units of vitamin D daily Taking 150 mcg of levothyroxine daily , good adherence and administration Patient currently denies heat or cold intolerance, diarrhea or constipation, hair loss, palpitation, anxiety, weight changes, mood changes, low energy, changes in appearance of eyes or vision changes, tremors, increased diaphoresis or dry skin. ? Patient denies any difficulty swallowing, pain on swallowing or voice changes or difficulty breathing. Patient denies any history of childhood neck radiation. Denies having ever used lithium, amiodarone or biotin supplements. Patient denies any family history of thyroid cancer or thyroid disease. Physical exam General: sitting comfortably in no acute distress HEENT: normocephalic/atraumatic,, moist oral mucosa Neck: supple, surgical scar well healed, no palpable lymph nodes or masses Cardiac: normal heart sounds Pulm: normal breath sounds B/L, no added breath sounds Abd: not distended, no tenderness Extremities: no edema, no signs of myxedema Neuro: AAO x3, Speech: normal, no facial droop, moving all 4 extremities Laboratory Tests 12/22/22 09/05/23 01/30/24 08:40 10:40 08:45 25-OH Vitamin D Total 7.0 TSH 0.76 0.47 0.63 Free T4 1.14 1.13 Thyroglobulin PTH Intact 42 Calcium (PTH Intact) 10.2 Thyroglobulin Antibody 05/22/24 05/22/24 05/22/24 16:00 16:00 16:00 25-OH Vitamin D Total TSH 6.11 H Free T4 1.17 Thyroglobulin 0.8 H 0.8 L PTH Intact Calcium (PTH Intact) Thyroglobulin Antibody <1 <1 07/13/24 08:54 25-OH Vitamin D Total 32.2 TSH 0.31 L Free T4 1.41 Thyroglobulin <0.1 L PTH Intact Calcium (PTH Intact) Thyroglobulin Antibody <1 Laboratory Tests 07/13/24 08/24/24 10/25/24 08:54 11:10 16:56 25-OH Vitamin D Total 32.2 TSH 5.38 H 0.11 L Free T4 1.15 1.57 Thyroglobulin 0.6 H Thyroglobulin Antibody <1 EXAMINATION: US HEAD NECK SOFT TISSUE 11/08/24 HISTORY: C73 - Malignant neoplasm of thyroid gland COMPARISON: Comparison is made with the prior examination dated 05/13/2021. FINDINGS: Sonographic examination of the neck was performed. The patient is status post thyroidectomy. Multiple normal lymph nodes are identified demonstrating thin cortices and fatty burton. No enlarged or abnormal lymph nodes are identified. US/US soft tiss head and/or neck IMPRESSION: No evidence of cervical lymphadenopathy. Electronically signed by: Gerhard Campbell MD 11/09/2024 08:12 AM EDT RP US THYROID May 2021 CLINICAL INFORMATION: Goiter. COMPARISON: None TECHNIQUE: Linear transducer grayscale and color Doppler examination with attention to the region of the thyroid. FINDINGS: SIZE: Measurements of the thyroid lobes and nodules are given in sagittal, anteroposterior and transverse dimensions respectively. Right Thyroid Lobe: 5.7 x 2.0 x 2.3 cm, volume 13.7 mL. Parenchyma: The gland echotexture is heterogeneous. Thyroid vascularity is normal. Left Thyroid Lobe: 7.7 x 2.9 x 3.0 cm, volume 35.0 mL. Parenchyma: The gland echotexture is heterogeneous. Thyroid vascularity is increased. Isthmus: 0.9 cm in maximum AP dimension. Estimated total number of nodules greater than or equal to 1 cm: 2. Program[employer] nodules are described as follows: 1. Location: Left lobe extending into isthmus. Size: 4.3 x 2.9 x 5.0 cm, volume 32.9 mL. Nodule characteristics: Composition: Solid (2). Echogenicity: Isoechoic (1). Shape: Not taller than wide (0). Margins: Lobulated (2). Echogenic Foci: None (0). ACR TI-RADS total points: 5 ACR TI-RADS category: 4 2. Location: Right upper pole. Size: 1.0 x 0.7 x 1.0 cm, volume 0.37 mL. Nodule characteristics: Composition: Solid (2). Echogenicity: Hypoechoic (2). Shape: Not taller than wide (0). Margins: Smooth (0). Echogenic Foci: Punctate echogenic foci (3). ACR TI-RADS total points: 7 ACR TI-RADS category: 5 3. Location: Right mid pole. Size: 0.7 x 0.4 x 0.6 cm, volume 0.07 mL. Nodule characteristics: Composition: Mixed cystic and solid (1). Echogenicity: Hypoechoic (2). Shape: Not taller than wide (0). Margins: Smooth (0). Echogenic Foci: None (0). ACR TI-RADS total points: 3 ACR TI-RADS category: 3 4. Location: Right lower pole/lateral. Size: 0.7 x 0.4 x 0.6 cm, volume 0.09 mL. Nodule characteristics: Composition: Solid/almost completely solid (2). Echogenicity: Hypoechoic (2). Shape: Not taller than wide (0). Margins: Smooth (0). Echogenic Foci: None (0). ACR TI-RADS total points: 4 ACR TI-RADS category: 4 5. Location: Right lower pole/medial. Size: 0.6 x 0.4 x 0.4 cm, volume 0.05 mL. Nodule characteristics: Composition: Cannot be determined (2). Echogenicity: Cannot be determined (1). Shape: Not taller than wide (0). Margins: Smooth (0). Echogenic Foci: Peripheral calcifications (2). ACR TI-RADS total points: 5 ACR TI-RADS category: 5 NODES: No lymphadenopathy is seen in the tissue surrounding the thyroid gland. US/US thyroid IMPRESSION: Enlarged heterogeneous thyroid gland with multiple bilateral nodules. Fine-needle aspiration of the largest nodule in the left lobe extending into the isthmus and partially calcified nodule in the right upper lobe recommended. [facility] Medical History (Updated 05/24/24 @ 10:48 by Faustina Rob MD) Papillary thyroid carcinoma T2DM (type 2 diabetes mellitus) Vitamin D deficiency Multinodular thyroid Hypothyroidism Surgical History History of thyroid surgery Hx of section Family History Father Unknown family medical history Mother Unknown family medical history Social History Alcohol intake: never Patient Tobacco Use Status: Never used Tobacco Assessment & Plan Assessment & Plan (1) Papillary thyroid carcinoma: Code(s): C73 - Malignant neoplasm of thyroid gland Category: Medical Plan: 53-year-old female coming in today for follow up of papillary thyroid cancer status post total thyroidectomy on 04/18/[address] Tapan Huston at [facility], with pathology revealing multifocal (4 foci) classic PTC, largest tumor 8 mm in the right lobe, remaining foci ranging between 0.15-4 mm bilaterally, with no ET E/AI/LI, negative margins, no lymph nodes assessment. AJCC stage I (pT1, NX) ,NU low risk of recurrence for initial risk. 08/24/2024: TSH 5.38, free T4 1.15, TG 0.6, TG antibody less than 1 Her postop TG in the 1st year after surgery has been detectable but low, we will target her TSH to 0.1-0.5. 08/29/2024: Levothyroxine increased from 125 mcg daily to 150 mcg daily 10/25/2024: TSH 0.11, free T4 1.57, TSH within goal Most recently 11/08/2024: Ultrasound of the neck, I reviewed the images myself, it did not show any abnormal lymph nodes Plan: -continue levothyroxine to 150 mcg daily -repeat TSH, free T4, TG and TG antibody levels prior to follow up in 6 months -next ultrasound of the neck to be done in 1 year sometime in November 2025 -follow up in 6 months (2) Hypothyroidism: Code(s): E03.9 - Hypothyroidism, unspecified Category: Medical Qualifiers: Hypothyroidism type: postoperative Qualified Code(s): E89.0 - Postprocedural hypothyroidism Plan: 08/24/2024: TSH 5.38, free T4 1.15, TG 0.6, TG antibody less than 1 Her postop TG in the 1st year after surgery has been detectable but low, we will target her TSH to 0.1-0.5. 08/29/2024: Levothyroxine increased from 125 mcg daily to 150 mcg daily 10/25/2024: TSH 0.11, free T4 1.57, TSH within goal Plan: -continue levothyroxine to 150 mcg daily -repeat TSH, free T4, TG and TG antibody levels prior to follow up in 6 months (3) Vitamin D deficiency: Code(s): E55.9 - Vitamin D deficiency, unspecified Category: Medical Plan: Vitamin-D level noted to be at 7 from December 2022. This should be between 30-60. Start vitamin-D 1000 units daily. Fortunately no parathyroid injury during the thyroidectomy. She denies any signs of hypocalcemia. Normal calcium level of 32 from July 2024. Plan: -continue vitamin-D 1000 units daily -repeat vitamin-D with the next set of labs in 6 months Plan I spent 30 minutes in reviewing the record, seeing the patient and documenting in the medical record. Orders: Orders 2 Thyroid Stimulating Hormone 6 Months C73 - Malignant neoplasm of thyroid gland, E55.9 - Vitamin D deficiency, unspecified Free T4 (Free Thyroxine) 6 Months C73 - Malignant neoplasm of thyroid gland Thyroglobulin 6 Months C73 - Malignant neoplasm of thyroid gland Thyroglobulin Antibodies 6 Months C73 - Malignant neoplasm of thyroid gland Thyroglobulin Tumor Marker 6 Months C73 - Malignant neoplasm of thyroid gland Vitamin D 25-OH Total 6 Months E55.9 - Vitamin D deficiency, unspecified Medications: Refilled 2 levothyroxine 150 mcg PO DAILY 90 tabs 3RF cholecalciferol (vitamin D3) 25 mcg PO DAILY 90 caps 3RF Patient Instructions: Continue levothyroxine 150 mcg daily Do blood work 2 weeks prior to your next appointment in 6 months Coding Level of Care Code Est Pt Level 4 (07766) Complex EM visit Add On G2211 Diagnoses Papillary thyroid carcinoma C73 Postoperative hypothyroidism E89.0 Hypothyroidism type: postoperative Vitamin D deficiency E55.9 Time Spent (min) 30
--- OUTSIDE RECORDS SUMMARY | 2024-12-10 10:57 | XMS_ITS | Encounter Summary ---
Author Organization [employer] Address [address] [address] Care Team Providers Care Healthcare Administration Intern Name Role Phone Isai Barajas MD Primary Care Provider [phone] Reason for Visit * Reason Onset Date Comments Med Refill 01/09/2024 Encounter Details Date Type Department Care Team (Late st Contact Info) Description 01/09/2024 Telephone [facility] [address] [place] [address] Isai Baarjas MD [address] [place], [place] [phone] Med Refill Social History Tobacco Use Types [...] 01/11/2024 9:44 AM EDT Appt scheduled with [facility] provider as pt has not seen a [...] 40 MG tablet To be sent to: [facility] - [place], [place] - [address] [place] [address] documented in this encounter Plan of Treatment Not on file documented as of this encounter Visit Diagnoses Not on filedocumented in this encounter Care Teams Healthcare Administration Intern Relationship Specialty Start Date End Date Isai Barajas MD [address] [place] [id number] PCP - General Internal Medicine 05/20/21 documented as of this encounter
--- OUTSIDE RECORDS SUMMARY | 2024-12-10 10:57 | XMS_ITS | Encounter Summary ---
Author Organization [employer] Address 75 [facility] [address] [place] [address] Care Team Providers Care Attorney General Name Role Phone Isai Barajas MD Primary Care Provider [phone] Encounter Details Date Type Department Care Team (Late st Contact Info) Description 01/09/2024 Orders Only [facility] [address] [place], [place] [phone] Isai Barajas MD [address] [place], [place] [phone] Type 2 diabetes mellitus without complication, without long-term current use of insulin (CMS/[facility]) (Primary Dx) Social History Tobacco Use Types Packs/Day Years Used Date Smoking Tobacco: Never Assessed Comments Unknown Sex and Gender Information Value Date Recorded Sex Assigned at Female 06/07/2022 10:39 AM EDT Legal Sex Female 10:39 AM EDT Gender Identity Female 06/07/2022 10:39 AM EDT Sexual Orientation Straight 06/07/2022 10 :39 AM EDT documented as of this encounter Plan of Treatment Not on file documented as of this encounter Procedures Procedure Name Priority Date/Time Associated Diagnosis Comments ALBUMIN, RANDOM URINE W/CREATININE Routine 01/30/2024 8:50 AM EDT Type 2 diabetes mellitus without complication, without long-term current use of insulin (CMS/HCC) documented in this encounter Results * Albumin, Random Urine W/Creatinine (01/30/2024 8:50 AM EDT) Creatinine, Urine 76.90 mg/dL [facility] Microalbumin Urine 9.0 mg/L [facility] Microalbum Creatinine Ratio Ur 11.7 <30 ug/mg cr [facility] Comment:Albumin/Creatinine R atio Reference Ranges: Normal: < 30 ug/mg creatinine Microalbuminuria: 30 - 300 ug/mg creatinineClinical Albuminuria: > 300 ug/mg creatinine 01/30/2024 8:50 AM EDT 01/30/2024 1:06 PM EDT us Brooklynn Fleming MD LAB URINE ORDERABLES Final Re sult [facility] [address] [place] [phone] documented in this encounter Visit Diagnoses Diagnosis Type 2 diabetes mellitus without complication, without long-term current use of insulin ([facility])- Primary documented in this encounter Care Teams Attorney General Relationship Specialty Start Date End Date Isai Barajas MD [address] [place] [id number] PCP - General Internal Medicine 05/20/21 documented as of this encounter
--- OUTSIDE RECORDS SUMMARY | 2024-12-10 10:57 | XMS_ITS | Encounter Summary ---
Author Organization [employer] Address [address] [place] [address] Care Team Providers Care Mimeographer Name Role Phone Isai Barajas MD Primary Care Provider [phone] Reason for Visit * Reason Comments Med Refill Encounter Details Date Type Department Care Team ([facility] st Contact Info) Description 01/11/2024 Refill [facility] [address] [place], [place] [phone] Isai Barajas MD [address] [place], [place] [phone] Other specified hypothyroidism; Type 2 diabetes mellitus [...] hypothyroidism Type 2 diabetes mellitus without complications (CMS/HCC) Essential (primary) hypertension Unspecified essential hypertension Mixed hyperlipidemia documented in this encounter Care Teams Mimeographer Relationship Specialty Start Date End Date Isai Barajas MD [address] [place] [address] PCP - General Internal Medicine 05/20/21 documented as of this encounter
--- OUTSIDE RECORDS SUMMARY | 2024-12-10 10:57 | XMS_ITS | Encounter Summary ---
Author Organization [employer] Address [address] [place] [address] Care Team Providers Care Paper Tester Name Role Phone Isai Barajas MD Primary Care Provider [phone]- [phone] Reason for Visit * Reason Onset Date Comments Durable Medical Equipment 01/09/2024 Encounter Details Date Type Department Care Team (Late st Contact Info) Description 01/09/2024 Telephone [facility] [address] [place], [place] [phone] Isai Barajas MD [address] [place] [address] Durable Medical Equipment Social History Tobacco Use [...] on filedocumented in this encounter Care Teams Paper Tester Relationship Specialty Start Date End Date Isai Barajas MD [address] [place] [address] PCP - General Internal Medicine 05/20/21 documented as of this encounter
--- OUTSIDE RECORDS SUMMARY | 2024-12-10 10:57 | XMS_ITS | Encounter Summary ---
Author Organization [employer] Address 75 [facility] [address]t [place] [address] Care Team Providers Care Assessment Clinician Name Role Phone Isai Barajas MD Primary Care Provider [phone] Encounter Details Date Type Department Care Team (Late st Contact Info) Description 05/04/2024 Orders Only [facility] [address] [place] [address] Provider, Historical, Social History Tobacco Use Types Packs/Day Years [...] * Surgical Pathology (04/18/2024 1:26 PM EDT) Historical Provider LAB PATHOLOGY ORDERABLES Final Result documented in this encounter Visit Diagnoses Not on filedocumented in this encounter Additional Health Concerns Assessment Noted Time PHQ-9 Depression Total Score: 0 02/02/20 24 10:39 AM EDT documented as of this encounter Care Teams Assessment Clinician Relationship Specialty Start Date End Date Isai Barajas MD [address] [place] [id number] PCP - General Internal Medicine 05/20/21 documented as of this encounter
--- OUTSIDE RECORDS SUMMARY | 2024-12-10 10:57 | XMS_ITS | Clinical Summary ---
Author Organization [employer] Address [address] [facility] 7t [place] [address] Care Team Providers Care Piping Designer Name Role Phone Isai Barajas MD Primary Care Provider [phone] Allergies No known active allergies Medications glucose blood (FreeStyle InsuLinx Test) test strip Use 1 by To Skin route 2 times every day 04/07/20 21 Active FREESTYLE LITE test stripIndications: Type 2 diabetes mellitus without complication, without long-term current use of insulin (CMS/[facility]) Use to test blood sugar 2 times daily 100 each 01/09/20 24 025 Active Lancets miscIndications:T ype 2 diabetes mellitus without complication, without long-term current use of insulin (CMS/HCC) Use to test blood sugar 2 times daily 100 each 01/09/20 24 Active Alcohol Swabs 70 % padsIndications:T ype 2 diabetes mellitus without complication, without long-term current use of insulin (CMS/[facility]) Use to test blood sugar 2 times daily 100 each 01/09/20 24 Active Blood Glucose Monitoring Suppl (FreeStyle [place] Lite) w/Device kitIndications:Ty pe 2 diabetes mellitus without complication, without long-term current use of insulin (CMS/[facility]) Use to test blood sugar 2 times daily 1 kit 01/09/20 24 Active lisinopril 10 MG tabletIndications :Primary hypertension Take 1 tablet (10 mg) by mouth Once per day. 30 tablet 02/02/20 24 025 Active metFORMIN (Glucophage) 1000 MG tablet Take 1 tablet (1,000 mg) by mouth with breakfast and with evening meal. 60 tablet 03/01/20 24 025 Active levothyroxine (Synthroid, Levoxyl) 50 MCG tabletIndications :Other specified hypothyroidism TAKE ONE TABLET EVERY DAY 30 tablet 05/02/20 24 Active simvastatin (Zocor) 40 MG tabletIndications :Mixed hyperlipidemia TAKE ONE TABLET BY MOUTH EVERY DAY 30 tablet 3 11/20/19 25 Active Januvia 50 MG tabletIndications :Type 2 diabetes mellitus without complications (CMS/HCC) TAKE ONE TABLET BY MOUTH EVERY DAY 30 tablet 3 11/23/19 25 Active SITagliptin (Januvia) 50 MG tabletIndications :Type 2 diabetes mellitus without complications (CMS/HCC) TAKE ONE TABLET BY MOUTH EVERY DAY 30 tablet 3 07/13/20 24 025 Discontinued simvastatin (Zocor) 40 MG tabletIndications :Mixed hyperlipidemia TAKE ONE TABLET BY MOUTH EVERY DAY 30 tablet 3 07/13/20 24 025 Discontinued Active Problems Problem Noted Date Diagnosed Date Type 2 diabetes mellitus 01/09/2024 Hypertensive disorder 01/09/2024 Hypercholesterolemia 04/14/2021 Encounters Date Type Department Care Team Description 11/21/2024 Refill [facility] [address] [place] [address] Isai Barajas MD Type 2 diabetes mellitus without complications (CMS/HCC) 11/17/2024 Refill [facility] [address] [place] [address] Isai Barajas MD Mixed hyperlipidemia 10/25/2024 Orders Only GENERIC EXTERNAL DATA DEPARTMENT [...] 07/10/2024 2:33 PM EST Plan of Treatment Health Maintenance Due Date Last Done Comments [...] 2) 03/29/2024 02/02/2024 COVID-19 Vaccine (1 - 2023- season) 2024 Influenza Vaccine (#1) 2024 Pap [...] Procedure Name Priority Date/Time Associated Diagnosis Comments US HEAD NECK SOFT TISSUE Routine 11/08/2024 1:14 PM EDT TSH Routine 10/25/2024 4:56 PM EDT T4, FREE Routine 10/25/2024 4:56 PM EDT POCT GLYCATED HEMOGLOBIN, TOTAL Routine 07/10/2024 2:36 PM EST Type 2 diabetes mellitus without complication, without long-term current use of insulin ([facility]) BI MAMMOGRAM SCREENING TOMOSYNTHESIS BILATERAL Routine 02/08/2024 [...] Recently Relevant to Health Maintenance Results * US Head Neck Soft Tissue (11/08/2024 1:14 PM EDT) Anatomical Region Laterality Modality Head, Neck Ultrasound 11/08/2024 1:14 PM EDT Narrative 11/09/2024 8:14 AM EDT ? [facility] ?[address] ?[place] [address] ? Ultrasound Report ? Signed ? Patient: Cristhian,Aajph ?MR#: [id number] ? : 1970 ?Acct:[id number] ? Age/Sex: 54 / F ?ADM Date: 11/08/24 ? Loc: HO.US ? Attending Dr: Faustina Rob MD ? Ordering Physician: Faustina Rob MD ?? Date of Service: 11/08/24 ?? Procedure(s): US soft tiss head and/or neck ?? Accession Number(s): [id number] ? cc: Isai Barajas MD; Faustina Rob MD ? EXAMINATION: ??US HEAD NECK SOFT TISSUE ? HISTORY: C73 - Malignant neoplasm of thyroid gland ? COMPARISON: Comparison is made with the prior examination dated ?? 05/13/2021. ? FINDINGS: ??Sonographic examination of the neck was performed. The ?? patient is status post thyroidectomy. Multiple normal lymph nodes are ?? identified demonstrating thin cortices and fatty burton. No enlarged or ?? abnormal lymph nodes are identified. ? US/US soft tiss head and/or neck ?? IMPRESSION: ?? No evidence of cervical lymphadenopathy. ? Electronically signed by: ??Gerhard Campbell MD ??11/09/2024 08:12 AM EDT ?? RP ? Dictated By: ?Gerhard Campbell MD ? Signed By: ?<Electronically signed by Gerhard Campbell MD in OV> ?11/09/24811 ? DD/ 1314 ? TD/TT: 11/08/24 1326 ? Director Vaccine: ? Procedure Note Donotjaredinterpreter, Image - 11/09/[address] [address] Ultrasound Report Signed Patient: Danial Morrow#: [id number] : 1970Acct:[id number] Age/Sex: 54 / FADM Date: 11/08/24 Loc: HO.US Attending Dr: Faustina Rob MD Ordering Physician: Faustina Rob MD Date of Service: 11/08/24 Procedure(s): US soft tiss head and/or neck Accession Number(s): [id number] cc: Isai Barajas MD; Faustina Rob MD EXAMINATION: US HEAD NECK SOFT TISSUE HISTORY: C73 - Malignant neoplasm of thyroid gland COMPARISON: Comparison is made with the prior examination dated 05/13/2021. FINDINGS: Sonographic examination of the neck was performed. The patient is status post thyroidectomy. Multiple normal lymph nodes are identified demonstrating thin cortices and fatty burton. No enlarged or abnormal lymph nodes are identified. US/US soft tiss head and/or neck IMPRESSION: No evidence of cervical lymphadenopathy. Electronically signed by: Gerhard Campbell MD 11/09/2024 08:12 AM EDT Dictated By: Gerhard Campbell MD Signed By: <Electronically signed by Gerhard Campbell MD in OV> 11/09/24 0812 DD/ 1314 TD/TT: 11/08/24 1326 Director Vaccine: us [facility] External Provider IMG US PROCEDURES Final Result * (ABNORMAL) TSH (10/25/2024 4:56 PM EDT) Thyroid Stimulating Hormone 0.11(L) 0.32 - 4.0 uIU/mL LABS Comment:TSH 3rd Generation ( [facility]) 10/25/2024 4:56 PM EDT 10/25/2024 4:56 PM EDT us Generic External Data Provider LAB BLOOD ORDERAB LES Final Result Performing Organization Address [facility] Co de Phone Number LABS [address] [place] [phone] * T4, Free (10/25/2024 4:56 PM EDT) Free T4 (Free Thyroxine) 1.57 0.71 - 1.85 ng/dL LABS 10/25/2024 4:56 PM EDT 10/25/2024 4:56 PM EDT Generic External Data Provider LAB BLOOD ORDERAB LES Final Result Performing Organization Address [facility] de Phone Number LABS [address] [place] [phone] * (ABNORMAL) POCT A1C (07/10/2024 2:36 PM EST) Hemoglobin A1C 6.8(A) 4.0 - 6.0 % QC Media Lot # Comment:[id number] Lot# Expiration Date Comment:03/08/2026 Blood 07/10/2024 2:36 PM EST Isai Barajas MD POINT OF CARE TEST ENTER/ED IT ORDERABLES Final Result * BI Mammogram Screening Tomosynthesis Bilateral (02/08/2024 9:30 AM EDT) Anatomical Region Laterality Modality Breast Bilateral Mammography 02/08/2024 9:30 AM EDT Narrative 03/07/2024 2:35 PM EDT ? [facility] ? [address] ?[place] [address] ? Mammography Report ? Signed ? Patient: Nagash,Aajph ?MR#: [id number] ? : 1970 ?Acct:[id number] ? Age/Sex: 53 / F ?ADM Date: 02/08/24 ? Loc: HO.MAMMO ? Attending Dr: Brooklynn Fleming MD ? Ordering Physician: Brooklynn Fleming MD ?Results: 1Nega ?? tive ? Date of Service: 02/08/24 ?Follow Up: 1 Year From Orig ?? inal Mammogram ? Procedure(s): MM tomosynthesis screening BI ?? Accession Number(s): [id number] ? cc: Isai Barajas MD; Brooklynn Fleming [...] 1431 ? DD/ 0930 ? TD/TT: ? Director Vaccine: ? Procedure Note Donmarlon, Image - 03/07/2024 [facility] [address] [place] [address] Mammography Report Signed [facility] [id number] : 1970Acct:[id number] Age/Sex: 53 / FADM Date: 02/08/24 Loc: HO.MAMMO Attending Dr: Brooklynn Fleming MD Ordering Physician: Brooklynn Fleming MDResults: 1Nega tive Date of Service: 02/08/24Follow Up: 1 Year From Orig inal Mammogram Procedure(s): MM tomosynthesis screening BI Accession Number(s): [id number] cc: Isai Barajas MD; Brooklynn Fleming MD [...] Thomason MD in OV> 03/07/24 1431 DD/ 0930 TD/TT: Director Vaccine: us Brooklynn Fleming MD IMG BI PROCEDURES Final Resul t * Albumin, Random Urine W/Creatinine (01/30/2024 8:50 AM EDT) Creatinine, Urine 76.90 mg/dL [facility] Microalbumin Urine 9.0 mg/L [facility] Microalbum Creatinine Ratio Ur 11.7 <30 ug/mg cr LABS Comment:Albumin/Creatinine R atio Reference Ranges: Normal: < 30 ug/mg creatinine Microalbuminuria: 30 - 300 ug/mg creatinineClinical Albuminuria: > 300 ug/mg creatinine 01/30/2024 8:50 AM EDT 01/30/2024 1:06 PM EDT us Brooklynn Fleming MD LAB URINE ORDERABLES Final Re sult LABS [address] [place], [place] [phone] * (ABNORMAL) Lipid Panel, Standard (01/30/2024 8:45 AM EDT) Triglycerides 154(H) <150 mg/dL [facility] LAB[facility] Comment:Desirable Triglyceri de: less than 150 mg/dLBorderline High Triglyceride 150-199 mg/dLHigh Triglyceride: 200-499 mg/dLVery High Triglyceride: greater than or equal to 5OO mg/dL Cholesterol 169 <200 mg/dL LABS Comment:Desirable Cholestero l: less than 200 mg/dLBorderline High Cholesterol: 200-239 mg/dLHigh Cholesterol: greater than 239 mg/dL LDL Cholesterol Calculated 92 <100 mg/dL LABS Comment:Desirable LDL: less than 100 mg/dLNear Optimal/Above Optimal LDL: 110- 129 mg/dLBorderline High LDL: 130-159 mg/dLHigh LDL: 160-189 mg/dLVery High LDL: greater than or equal to 190 mg/dL HDL Cholesterol 47 >40 mg/dL [facility] Comment:Desirable HDL: great er than 40 mg/dL Note: This HDL assay may give artificially low results in patients with liver disease. Blood Venous blood specimen / Unknown 01/30/2024 8:45 AM EDT 01/30/2024 1:12 PM EDT us Brooklynn Fleming MD LAB BLOOD ORDERABLES Final Re sult LABS [address] [place] [phone] * THINPREP PAP (05/05/2021 11:15 AM EDT) Clinical Information: None given [facility] COMMENT SEE COMMENT [facility] [...] historic and ?? current clinical information. ?? Telesales Advisor : SEE COMMENT [facility] Comment: AmanXM, CT(ASCP) CT screening location: [address] ??[phone] Interpretation/R esult: Negative for intraepithelial lesion or malignancy. [facility] LMP: NONE GIVEN [facility] Prev. BX: NONE GIVEN [facility] Prev. PAP: NONE GIVEN [facility] SOURCE: None given [facility] Statement Of Adequacy: SEE COMMENT [facility] Comment: Satisfactory for evaluation. Endocervical/transformation zone component present. Age and/or menstrual status not provided 05/05/2021 11:1 5 AM EDT D[facility] LAB PATHOLOGY ORDERABLES Final Result Performing Organization Address [facility] Co de Phone Number [facility] [address] * HPV mRNA E6/E7 (05/05/2021 11:15 AM EDT) HPV nRNA E6/E7 Not Detected Not Detected [facility] Comment: Methodology: Office Helper Clerical-Mediated Amplification This assay detects E6/E7 viral messenger RNA (mRNA) from 14 high-risk HPV types (16,18,31,33,35,39,45,51,52,56,58,59,66,68). ? The analytical performance characteristics of this assay have been determined by [employer]. The modifications have not been cleared or approved by the FDA. This assay has been validated pursuant to the CLIA regulations and is used for clinical purposes. ?? For additional information, please refer to http://education.Usetrace/faq/QQY033m8 (This link if provided for information/ educational purposes only.) 05/05/2021 11:1 5 AM EDT Dene[facility] LAB BLOOD ORDERABLES Shahana l Result Performing Organization Address [facility] de Phone Number [facility] [address] from Last 3 Months or Most Recently Relevant to Health Maintenance Insurance [facility] Care Teams Piping Designer Relationship Specialty Start Date End Date Isai Barajas MD [address] [place] [phone] PCP - General Internal Medicine 05/20/21
--- OUTSIDE RECORDS SUMMARY | 2024-12-10 10:57 | XMS_ITS | Encounter Summary ---
Author Organization [employer] Address [address] [place] [address] Care Team Providers Care Plant Cytologist Name Role Phone Isai Braajas MD Primary Care Provider [phone] Reason for Visit * Reason Onset Date Comments Med Refill 03/01/2024 Encounter Details Date Type Department Care Team ([facility] st Contact Info) Description 03/01/2024 Telephone [facility] [address] [place] [address] Isai Barajas MD [address] [place] [address] Med Refill Social History Tobacco Use Types [...] documented as of this encounter Care Teams Plant Cytologist Relationship Specialty Start Date End Date Isai Barajas MD [address] [place] [phone] PCP - General Internal Medicine 05/20/21 documented as of this encounter
== END 2024-12-10 10:21 | disposition home or self-care (01) ==
LOC: HO.ENCR 09:50
PROVIDERS: PCP Internal Medicine; Visit Provider Student in an Organized Health Care Education/Training Program
DX: C73 Malignant neoplasm of thyroid gland (principal); E89.0 Postprocedural hypothyroidism; E55.9 Vitamin D deficiency, unspecified
CPT/HCPCS: 99214; G2211

== ENCOUNTER → 2024-12-10 09:50 | Outpatient (BNVA) | payer OTHER, SELFPAY | PROVIDERS: PCP Internal Medicine; Visit Provider Student in an Organized Health Care Education/Training Program | DX: E89.0 Postprocedural hypothyroidism (principal); C73 Malignant neoplasm of thyroid gland; E55.9 Vitamin D deficiency, unspecified | CPT/HCPCS: 99212 ==

== ENCOUNTER 2025-06-13 12:07 | Outpatient (REF) | payer OTHER, SELFPAY ==
--- OUTSIDE RECORDS SUMMARY | 2025-06-13 11:00 | XMS_ITS | Encounter Summary ---
Author Organization [employer] Address [address] [place] [address] [address] [place] [address] Care Team Providers Care Clipping Marker Name Role Phone Isai Barajas MD Primary Care Provider [phone] Reason for Visit * Reason Comments Follow-up Encounter Details Date Type Department Care Team ([facility] Contact Info) Description 06/13/2025 11:00 AM EST Office Visit [facility] [address] [place] [address] Yennifer Urias, OD [address] [place] [address] Open angle with borderline findings, low risk, [...] Violence: Not At Risk (07/04/2023) Received from [facility] Intimate Partner Violence Are you denied [...] Exam Right Left Vitreous Clear Clear Disc [place] and healthy, (-) NVD [place] and healthy, (-) NVD C/D Ratio Vertical [...] with the content and plan as written. Building Energy Retrofit Technician Source: ___ None ___ Bilingual Staff ___ Qualified Staff Oil Furnace Installer ___ Telephone Building Energy Retrofit Technician; ID# __x_ Building Energy Retrofit Technician brought by patient (family member, friend, UNCLAIMED PROPERTY OFFICER, etc) ___ In person foreign language interpreter ___ Ipad Building Energy Retrofit Technician; ID#: Language Spoken During Exam: Arabic [1] Current Outpatient Medications Medication Sig Dispense Refill Alcohol Swabs 70 % pads Use to test blood sugar 2 times daily 100 each 11 Blood Glucose Monitoring Suppl (FreeStyle [place] Lite) w/Device kit Use to test blood [...] Description 10/25/2025 11:00 AM EDT Office Visit [facility] [address] [place], [place] [phone] Yennifer Urias OD [address] [place] [address] documented as of this encounter Procedures Procedure [...] documented as of this encounter Care Teams Clipping Marker Relationship Specialty Start Date End Date Isai Barajas MD [address] [place] [phone] PCP - General Internal Medicine 05/20/21 documented as of this encounter
[2025-06-13 13:58] LABS: Free T4 (Free Thyroxine) 1.15 ng/dL (0.71-1.85); Thyroid Stimulating Hormone 6.39 uIU/mL (0.32-4.0)
--- OUTSIDE RECORDS SUMMARY | 2025-06-13 15:03 | XMS_ITS | Encounter Summary ---
Author Organization [employer] Address [address] [place] [address] Care Team Providers Care Channel Development Manager Name Role Phone Isai Barajas MD Primary Care Provider [phone] Reason for Visit * Reason Onset Date Comments Med Refill 03/01/2024 Encounter Details Date Type Department Care Team ([facility] st Contact Info) Description 03/01/2024 Telephone [facility] [address] [place] [address] Isai Baraajs MD [address] [place] [address] Med Refill Social History Tobacco Use Types [...] Description 10/25/2025 11:00 AM EDT Office Visit [facility] [address] [place] [address] Tarka Yennifer, OD [address] [place] [address] documented as of this encounter Visit Diagnoses Not on filedocumented in this encounter Additional Health Concerns Assessment Noted Time PHQ-9 Depression Total Score: 0 02/02/20 24 10:39 AM EDT documented as of this encounter Care Teams Channel Development Manager Relationship Specialty Start Date End Date Isai Barajas MD [address] [place] [address] PCP - General Internal Medicine 05/20/21 documented as of this encounter
--- OUTSIDE RECORDS SUMMARY | 2025-06-13 15:03 | XMS_ITS | Encounter Summary ---
Author Organization [employer] Address [address] [place] [address] [place] [address] Care Team Providers Care Cannon Fire Direction Specialist Name Role Phone Isai Barajas MD Primary Care Provider [phone] Reason for Visit * Reason Comments Med Refill Encounter Details Date Type Department Care Team (Late Contact Info) Description 01/11/2024 Refill [facility] [address] [place] [address] Isai Barajas MD [address] [place], [place] [phone] Other specified hypothyroidism; Type 2 diabetes mellitus [...] Department Care Team (Late Contact Info) Description 10/25/2025 11:00 AM EDT Office Visit [facility] OPT[facility]RY [address] [place] [address] TarkaYennifer, OD [address] [place] [address] documented as of this encounter Visit Diagnoses Diagnosis Other specified hypothyroidism Type 2 diabetes mellitus without complications (HCC) Essential (primary) hypertension Unspecified essential hypertension Mixed hyperlipidemia documented in this encounter Care Teams Cannon Fire Direction Specialist Relationship Specialty Start Date End Date Isai Barajas MD [address] [place] [address] PCP - General Internal Medicine 05/20/21 documented as of this encounter
--- OUTSIDE RECORDS SUMMARY | 2025-06-13 15:03 | XMS_ITS | Encounter Summary ---
Author Organization [employer] Address 75 [facility] [address] [place] [address] Care Team Providers Care Case Technician Name Role Phone Isai Barajas MD Primary Care Provider [phone] Encounter Details Date Type Department Care Team (Latest Contact Info) Description 06/13/2025 Travel Social History Tobacco Use Types Packs/Day Years [...] Description 10/25/2025 11:00 AM EDT Office Visit [facility] OPT[facility] [address] [place], [place] [phone] Yennifer Urias, OD [address] [place] [address] documented as of this encounter Visit Diagnoses Not on filedocumented in this encounter Additional Health Concerns Assessment Noted Time PHQ-9 Depression Total Score: 0 02/02/20 24 10:39 AM EDT documented as of this encounter Care Teams Case Technician Relationship Specialty Start Date End Date Isai Barajas MD [address] [place] [address] PCP - General Internal Medicine 05/20/21 documented as of this encounter
--- OUTSIDE RECORDS SUMMARY | 2025-06-13 15:03 | XMS_ITS | Clinical Summary ---
Author Organization [employer] Address 75 [facility] 7t [place] [address] Care Team Providers Care Roller Name Role Phone Isai Barajas MD Primary Care Provider Allergies No known active allergies Medications glucose blood (FreeStyle InsuLinx Test) test strip Use 1 by To Skin route 2 times every day 1 Active Lancets miscIndications:Ty pe 2 diabetes mellitus without complication, without long-term current use of insulin (HCC) Use to test blood sugar 2 times daily 100 each 4 Active Alcohol Swabs 70 % padsIndications:Ty pe 2 diabetes mellitus without complication, without long-term current use of insulin (HCC) Use to test blood sugar 2 times daily 100 each 4 Active Blood Glucose Monitoring Suppl (FreeStyle [place] Lite) w/Device kitIndications:Typ e 2 diabetes mellitus without complication, without long-term current use of insulin (HCC) Use to test blood sugar 2 times daily 1 kit 4 Active levothyroxine (Synthroid, Levoxyl) 50 MCG tabletIndications: Other specified hypothyroidism TAKE ONE TABLET EVERY DAY 30 tablet 4 Active lisinopril 10 MG tabletIndications: Primary hypertension TAKE ONE TABLET BY MOUTH ONCE DAILY 30 tablet 11 5 Active Januvia 50 MG tabletIndications: Type 2 diabetes mellitus without complications (HCC) TAKE ONE TABLET BY MOUTH EVERY DAY 30 tablet 3 5 Active simvastatin (Zocor) 40 MG tabletIndications: Mixed hyperlipidemia TAKE ONE TABLET BY MOUTH EVERY DAY 30 tablet 3 5 Active metFORMIN (Glucophage) 1000 MG tablet TAKE ONE TABLET TWICE DAILY WITH BREAKFAST AND SUPPER 60 tablet 3 Active Active Problems Problem Noted Date Diagnosed Date Type 2 diabetes mellitus 01/09/2024 Hypertensive disorder 01/09/2024 Hypercholesterolemia 04/14/2021 Encounters Date Type Department Care Team Description 06/13/2025 11:00 AM EST Office Visit [facility] OPTOMETRY [address] [place] [address] TarYennifer prado, OD Open angle with borderline findings, low risk, bilateral (Primary Dx) 06/13/2025 Travel 03/23/2025 Refill [facility] [address] [place], [place] [phone] Juana Chowdhury MD 03/23/2025 Refill [facility] [address] [place], [place] [phone] Isai Barajas MD Type 2 diabetes mellitus without complications (CMS/HCC); Mixed hyperlipidemia from Last 3 Months Immunizations Immunization Administration Dates Next Due Pneumococcal Conjugate PCV [...] 90 07/10/2024 2:33 PM EST Temperature 36.5 C (97.7 F) 07/10/2024 2:33 PM EST Respiratory Rate 16 07/10/2024 2:33 PM EST [...] Description 10/25/2025 11:00 AM EDT Office Visit [facility] [address] [place] [address] Adonay Yennifer, OD [address] [place] [address] Health Maintenance Due Date Last Done Comments CT Colonography 1968 Colonoscopy 1968 Colorectal Cancer Screening 1968 FIT DNA/Cologuard 1968 FIT 1968 FOBT 1968 HIV Screening 1968 SDOH Screening 1968 Sigmoidoscopy 1968 Disability Screening 1968 Diabetes: Foot Exam 1978 Alcohol/Substance Use Screening 1980 Hepatitis C Screening 1986 DTaP/Tdap/Td Vaccines (1 - Tdap) 1987 Hepatitis B Vaccines (1 of 3 - 19+ 3-dose series) 1987 Zoster Vaccines (2 of 2) 03/29/2024 02/02/2024 Diabetes: Hemoglobin A1C 01/08/2025 07/10/2024, 06/0 12/2023 Diabetes: Urine Protein Screening 01/29/2025 01/30/2024, 04/08/2021 Lipid Panel 01/29/2025 01/30/2024, 04/08/2021 Depression Screening 02/01/2025 02/02/2024, 02/02/20 COVID-19 Vaccine ( season) 2025 Influenza Vaccine (#1) 2025 Mammogram 02/07/2026 02/08/2024 Cervical Cancer Screening 05/05/2026 HPV/Cotest 05/05/2026 05/05/2021 Pap Smear 05/05/2026 05/05/2021 Tobacco Screening 06/13/2026 06/13/2025 Eye Exam 06/13/2027 06/13/2025, 1101/2025, 06/13/2025, Additional history exists RSV Patients and Patients [...] patient's age to complete this topic Meningococcal B Vaccine Aged Out No l onger eligible based on patient's age to complete [...] angle with borderline findings, low risk, bilateral POCT GLYCATED HEMOGLOBIN, TOTAL Routine 07/10/2024 2:36 PM EST Type 2 diabetes mellitus without complication, without long-term current use of insulin (CMS/HCC) BI MAMMOGRAM SCREENING TOMOSYNTHESIS BILATERAL Routine 02/08/2024 [...] Recently Relevant to Health Maintenance Results * Automated Visual Field, Extended - OU - Both Eyes (06/13/2025 1:14 PM EST) Narrative Yennifer Urias, OD - 06/13/2025 1:14 PM EST VISUAL [...] Urias OD OPHTH VISUAL FIELD Final Result * (ABNORMAL) POCT A1C (07/10/2024 2:36 PM EST) Hemoglobin A1C 6.8(A) 4.0 - 6.0 % QC Media Lot # Comment:[id number] Lot# Expiration Date Comment:03/08/2026 Blood 07/10/2024 2:36 PM EST Isai Barajas MD POINT OF CARE TEST ENTER/ED IT ORDERABLES Final Result * BI Mammogram Screening Tomosynthesis Bilateral (02/08/2024 9:30 AM EDT) Anatomical Region Laterality Modality Breast Bilateral Mammography 02/08/2024 9:30 AM EDT Narrative 03/07/2024 2:35 PM EDT [address] [place] [address] Mammography Report Signed Patient: Trudy Morrow MR#: [id number] : 1970 Acct:[id number] Age/Sex: 53 / F ADM Date: 02/08/24 Loc: HO.MAMMO Attending Dr: Brooklynn Fleming MD Ordering Physician: Brooklynn Fleming MD Results: 1Nega tive Date of Service: 02/08/24 Follow Up: 1 Year From Orig inal Mammogram Procedure(s): MM tomosynthesis screening BI Accession Number(s): [id number] cc: Isai Barajas MD; Brooklynn Fleming MD [...] in OV> 03/07/24 1431 DD/ 0930 TD/TT: Manager Planning: Procedure Note Donotuseinterpreter, Image - 03/07/[address] [place] [address] Mammography Report Signed Patient: Trudy MorrowMR#: [id number] : 1970Acct:[id number] Age/Sex: 53 / FADM Date: 02/08/24 Loc: HO.MAMMO Attending Dr: Brooklynn Fleming MD Ordering Physician: Brooklynn Fleming MDResults: 1Nega tive Date of Service: 02/08/24Follow Up: 1 Year From [facility] ina Mammogram Procedure(s): MM tomosynthesis screening BI Accession Number(s): [id number] cc: Isai Barajas MD; Brooklynn Fleming MD [...] in OV> 03/07/24 1431 DD/ 0930 TD/TT: Manager Planning: us Brooklynn Fleming MD IMG BI PROCEDURES Final Resul t * Albumin, Random Urine W/Creatinine (01/30/2024 8:50 AM EDT) Creatinine, Urine 76.90 mg/dL [facility] Microalbumin Urine 9.0 mg/L [facility] Microalbum Creatinine Ratio Ur 11.7 <30 ug/mg cr [facility] Comment:Albumin/Creatinine R atio Reference Ranges: Normal: < 30 ug/mg creatinine Microalbuminuria: 30 - 300 ug/mg creatinineClinical Albuminuria: > 300 ug/mg creatinine 01/30/2024 8:50 AM EDT 01/30/2024 1:06 PM EDT us Brooklynn Fleming MD LAB URINE ORDERABLES Final Re sult Performing Organization Address [facility] Co de Phone Number [facility] [address] [place] [address] [phone] * (ABNORMAL) Lipid Panel, Standard (01/30/2024 8:45 AM EDT) Triglycerides 154(H) <150 mg/dL [facility] Comment:Desirable Triglyceri de: less than 150 mg/dLBorderline High Triglyceride 150-199 mg/dLHigh Triglyceride: 200-499 mg/dLVery High Triglyceride: greater than or equal to 5OO mg/dL Cholesterol 169 <200 mg/dL [facility] Comment:Desirable Cholestero l: less than 200 mg/dLBorderline High Cholesterol: 200-239 mg/dLHigh Cholesterol: greater than 239 mg/dL LDL Cholesterol Calculated 92 <100 mg/dL [facility] Comment:Desirable LDL: less than 100 mg/dLNear Optimal/Above Optimal LDL: 110- 129 mg/dLBorderline High LDL: 130-159 mg/dLHigh LDL: 160-189 mg/dLVery High LDL: greater than or equal to 190 mg/dL HDL Cholesterol 47 >40 mg/dL [facility] Comment:Desirable HDL: great er than 40 mg/dL Note: This HDL assay may give artificially low results in patients with liver disease. Blood Venous blood specimen / Unknown 01/30/2024 8:45 AM EDT 01/30/2024 1:12 PM EDT us Brooklynn Fleming MD LAB BLOOD ORDERABLES Final Re sult Performing Organization Address [facility]/ZIP Co de Phone Number [facility] [address] [place] [address] [phone] * THINPREP PAP (05/05/2021 11:15 AM EDT) Clinical Information: None given [facility] COMMENT SEE COMMENT [facility] Comment: EXPLANATORY NOTE: The Pap is a screening test for cervical cancer. It is not a diagnostic test and is subject to false negative and false positive results. It is most reliable when a satisfactory sample, regularly obtained, is submitted with relevant clinical findings and history, and when the Pap result is evaluated along with historic and current clinical information. Bundling Machine Operator : SEE COMMENT [facility] Comment: MARCMSTEFANY(ASCP) CT screening location: [place] [address] Interpretation/R esult: Negative for intraepithelial lesion or malignancy. [facility] LMP: NONE GIVEN [facility] Prev. BX: NONE GIVEN [facility] Prev. PAP: NONE GIVEN [facility] SOURCE: None given [facility] Statement Of Adequacy: SEE COMMENT [facility] Comment: Satisfactory for evaluation. Endocervical/transformation zone component present. Age and/or menstrual status not provided 05/05/2021 11:1 5 AM EDT Deneen HARVEY LAB PATHOLOGY ORDERABLES Final Result [facility] [address] * HPV mRNA E6/E7 (05/05/2021 11:15 AM EDT) HPV nRNA E6/E7 Not Detected Not Detected [facility] Comment: Methodology: [place]-Mediated Amplification This assay detects E6/E7 viral messenger RNA (mRNA) from 14 high-risk HPV types (16,18,31,33,35,39,45,51,52,56,58,59,66,68). The analytical performance characteristics of this assay have been determined by [employer]. The modifications have not been cleared or approved by the FDA. This assay has been validated pursuant to the CLIA regulations and is used for clinical purposes. For additional information, please refer to http://education.Make Meaning.Agorique/faq/PBT883w6 (This link if provided for information/ educational purposes only.) 05/05/2021 11:1 5 AM EDT us Deneen Arshad CNM LAB BLOOD ORDERABLES Shahana zepeda Result [facility] [address] [place] [address], from Last 3 Months or Most Recently Relevant to Health Maintenance [place] [address] [place] [address] Care Teams Roller Relationship Specialty Start Date End Date Isai Barajas MD [address] [place] [address] PCP - General Internal Medicine 05/20/21
--- OUTSIDE RECORDS SUMMARY | 2025-06-13 15:03 | XMS_ITS | Clinical Summary ---
Author Organization [facility] Address [address] [facility] [address] [place] [phone] Phone Care Team Providers Care Biblical Languages Professor Name Role Phone Zoila Aldridge MD Primary Care Provider Allergies No known active allergies Medications levothyroxine (SYNTHROID, LEVOTHROID) 50 MCG tablet Take 1 tablet by mouth every morning. 04/15/2023 Active lisinopril (PRINIVIL,ZESTRI L) 5 MG tablet Take 1 tablet by mouth every morning. 04/15/2023 Active metFORMIN (GLUCOPHAGE) 500 MG tablet Take 1 tablet by mouth 2 (two) times a day. 02/18/2022 Active simvastatin (ZOCOR) 40 MG tablet Take 1 tablet by mouth daily. 02/18/2022 Active Social History Tobacco Use Types Packs/Day Years Used Date Smoking Tobacco: Never Assessed Education Answer Date Recorded Are you interested in more education? Not on aamra e 05/26/2023 Are you concerned about learning? Not on file 05/26/2023 No 05/26/2023 No 05/26/2023 Digital Access Answer Date Recorded No 05/26/2023 No 05/26/2023 Reliable internet access at home? Not on file 05/26/2023 Device with a working camera? Not on file Intimate Partner Violence Answer Date R ecorded Are you denied basic needs s uch as food, clothing, or medical care? No 07/04/2023 In the past 12 months have y ou been in a relationship with a person who hurts, threatens, or tries to control you? No 07/04/2023 Are you denied basic needs s uch as food, clothing, or medical care? No 07/04/2023 In the past 12 months have y ou been in a relationship with a person who hurts, threatens, or tries to control you? No 07/04/2023 Comments Unknown Sex and Gender Information Value Date Recorded Sex Assigned at Female 05/26/2023 5:22 PM EDT Legal Sex Female 5:02 PM EDT Gender Identity Female 05/26/2023 5:22 PM EDT Sexual Orientation Not on file Last Filed Vital Signs Vital Sign Reading Time Taken Comments Blood Pressure 126/80 07/04/2023 4:31 PM EST Pulse 79 07/04/2023 4:31 PM EST Temperature 36.8 C (98.2 F) 07/04/2023 4:31 PM EST Respiratory Rate 19 07/04/2023 4:31 PM EST Oxygen Saturation 97% 07/04/2023 4:31 PM EST Inhaled Oxygen Concentration - - Weight 78 kg (172 lb) 07/04/2023 10:40 AM EST Height 155 cm (5' 1.02 ) 07/04/2023 10:40 AM EST Body Mass Index 32.47 07/04/2023 10:40 AM EST Plan of Treatment Health Maintenance Due Date Last Done Comments Adult Td,Tdap Booster 1968 CREATININE LEVEL 1968 LIPID PANEL 1968 POTASSIUM LEVEL 1968 TSH LEVEL 1968 DEPRESSION SCREENING 1980 SMOKING Hx and SMOKELESS TOB ACCO SCREENING 1981 HEPATITIS C SCREENING 1986 HIV ONE-TIME SCREENING (18-6 5 YEARS) 1986 PAP SMEAR 1989 SCREENING FOR DIABETES 2003 MAMMOGRAM 2008 COLOGUARD 2013 COLONOSCOPY 2013 COLORECTAL CANCER SCREENING 2013 FIT TEST 2013 FOBT 2013 SIGMOIDOSCOPY 2013 VIRTUAL COLONOSCOPY 2013 PNEUMOCOCCAL VACCINES (50+ y ears) (1 of 1 - PCV) 2018 ZOSTER VACCINES (1 of 2) 2018 INFLUENZA VACCINE (#1) 2025 COVID-19 VACCINE (2024-2 6 season) 2025 RSV VACCINE (1 - 1-dose 75+ series) 2043 HEPATITIS A VACCINES Aged Out No long er eligible based on patient's age to complete this topic HIB VACCINES Aged Out No longer eligi ble based on patient's age to complete this topic MENINGOCOCCAL VACCINES (ACWY) Aged Out No longer eligible based on patient's age to complete this topic MENINGOCOCCAL VACCINES (B) Aged Out N o longer eligible based on patient's age to complete this topic Medical Devices Not on file Insurance [facility] DIRECT [facility] NET FULL [facility] CONNECTORCARE DIRECT [facility] FULL [facility] CONNECTORCARE DIRECT Link [facility] NET FULL [facility] DIRECT Link [facility] [employer] [facility] NET FULL CONNECTORCARE DIRECT [facility] NET FULL [place] [employer] CONNECTORCARE DIRECT [facility] SAFETY NET FULL Care Teams Biblical Languages Professor Relationship Specialty Start Date End [place] [address] PCP - General 05/26/23 Additional Source Comments The information contained in this document represents components of the legal health record. It is not the complete legal health record.[facility]
--- OUTSIDE RECORDS SUMMARY | 2025-06-13 15:03 | XMS_ITS | Encounter Summary ---
Author Organization [employer] Address 75 [facility] [address] [place] [address] Care Team Providers Care Laborer Cook House Name Role Phone Isai Barajas MD Primary Care Provider [phone] Encounter Details Date Type Department Care Team (Late Contact Info) Description 05/04/2024 Orders Only [facility] [address] [place], [place] [phone] Provider, MD Sharmin Social History Tobacco Use [...] Description 10/25/2025 11:00 AM EDT Office Visit [facility] OPTOMETRY [address] [place] [address] Yennifer Urias, OD [address] [place] [address] documented as of this encounter Procedures Procedure [...] documented as of this encounter Care Teams Laborer Cook House Relationship Specialty Start Date End Date Isai Barajas MD [address] [place] [address] PCP - General Internal Medicine 05/20/21 documented as of this encounter
--- OUTSIDE RECORDS SUMMARY | 2025-06-13 15:03 | XMS_ITS | Encounter Summary ---
Author Organization [employer] Address [address] [address] Care Team Providers Care Gas Operation Manager Name Role Phone Isai Barajas MD Primary Care Provider [phone] Reason for Visit * Reason Onset Date Comments Med Refill 01/09/2024 Encounter Details Date Type Department Care Team (Late st Contact Info) Description 01/09/2024 Telephone [facility] [address] [place] [address] Isai Barajas MD [address] [place] [address] Med Refill Social History Tobacco Use Types [...] 01/11/2024 9:44 AM EDT Appt scheduled with [facility] provider as pt has not seen a [...] 40 MG tablet To be sent to: [facility] - [place], [place] - [address] [facility] documented in this encounter Plan of Treatment Upcoming Encounters Date Type Department Care Team (Late st Contact Info) Description 10/25/2025 11:00 AM EDT Office Visit [facility] OPT[facility] [address] [place] [address] Yennifer Urias, OD [address] [place] [address] documented as of this encounter Visit Diagnoses Not on filedocumented in this encounter Care Teams Gas Operation Manager Relationship Specialty Start Date End Date Isai Barajas MD [address] [place] [address] PCP - General Internal Medicine 05/20/21 documented as of this encounter
--- OUTSIDE RECORDS SUMMARY | 2025-06-13 15:03 | XMS_ITS | Encounter Summary ---
Author Organization [employer] Address [address] [place] [address] Care Team Providers Care Children'S Program Coordinator Name Role Phone Isai Barajas MD Primary Care Provider [phone] Reason for Visit * Reason Onset Date Comments Durable Medical Equipment 01/09/2024 Encounter Details Date Type Department Care Team (Late st Contact Info) Description 01/09/2024 Telephone [facility] MEDICINE [address] [place] [address] Isai Barajas MD [address] [place] [address] Durable Medical Equipment Social History Tobacco Use [...] Description 10/25/2025 11:00 AM EDT Office Visit [facility] OPTOMETRY [address] [place] [address] Yennifer Urias, OD [address] [place] [address] documented as of this encounter Visit Diagnoses Not on filedocumented in this encounter Care Teams Children'S Program Coordinator Relationship Specialty Start Date End Date Isai Barajas MD [address] [place] [id number] PCP - General Internal Medicine 05/20/21 documented as of this encounter
--- OUTSIDE RECORDS SUMMARY | 2025-06-13 15:03 | XMS_ITS | Encounter Summary ---
Author Organization [employer] Address [address] [place] [address] [place] [address] Care Team Providers Care Massage Coordinator Name Role Phone Isai Barajas MD Primary Care Provider [phone]- [phone] Encounter Details Date Type Department Care Team ([facility] Contact Info) Description 01/09/2024 Orders Only [facility] MED [facility] PEDS [address] [place], [place] [phone] Isai Barajas MD [address] [place] [address] Type 2 diabetes mellitus without complication, without long-term current use of insulin ([facility]) (Primary Dx) Social History Tobacco Use Types [...] 11:00 AM EDT Office Visit [facility] OPTOM[facility]RY [address] [place], [place] [phone] Yennifer Urias OD [address] [place] [address] documented as of this encounter Procedures Procedure Name Priority Date/Time Associated Diagnosis Comments ALBUMIN, RANDOM URINE W/CREATININE Routine 01/30/2024 8:50 AM EDT Type 2 diabetes mellitus without complication, without long-term current use of insulin ([facility]) documented in this encounter Results * Albumin, Random Urine W/Creatinine (01/30/2024 8:50 AM EDT) Creatinine, Urine 76.90 mg/dL [facility] Microalbumin Urine 9.0 mg/L [facility] Microalbum Creatinine Ratio Ur 11.7 <30 ug/mg cr [facility] Comment:Albumin/Creatinine R atio Reference Ranges: Normal: < 30 ug/mg creatinine Microalbuminuria: 30 - 300 ug/mg creatinineClinical Albuminuria: > 300 ug/mg creatinine 01/30/2024 8:50 AM EDT 01/30/2024 1:06 PM EDT us Brooklynn Fleming MD LAB URINE ORDERABLES Final Re sult [facility] [address] [place] [address] [phone] documented in this encounter Visit Diagnoses Diagnosis Type 2 diabetes mellitus without complication, without long-term current use of insulin ([facility])- Primary documented in this encounter Care Teams Massage Coordinator Relationship Specialty Start Date End Date Isai Barajas MD [address] [place] [id number] PCP - General Internal Medicine 05/20/21 documented as of this encounter
[2025-06-14 17:29] LABS: Thyroglobulin 0.5 ng/mL; Thyroglobulin Antibodies <1 IU/mL (< or = 1)
== END 2025-06-13 12:08 | disposition home or self-care (01) ==
LOC: HO.10HDL 12:07
PROVIDERS: Visit Provider Student in an Organized Health Care Education/Training Program
DX: Z01.84 Encounter for antibody response examination (principal); C73 Malignant neoplasm of thyroid gland; E55.9 Vitamin D deficiency, unspecified
CPT/HCPCS: 36415; 82306; 84432; 84439; 84443; 86800

== ENCOUNTER 2025-06-18 14:02 | Outpatient (AMB) | payer OTHER, SELFPAY ==
--- OUTSIDE RECORDS SUMMARY | 2025-06-13 11:00 | XMS_ITS | Encounter Summary ---
Author Organization [employer] Address [address] [place] [address] 7 [place] [address] Care Team Providers Care Net Application Architect Name Role Phone Isai Barajas MD Primary Care Provider [phone] Reason for Visit * Reason Comments Follow-up Encounter Details Date Type Department Care Team ([facility] Contact Info) Description 06/13/2025 11:00 AM EST Office Visit [facility] [address] [place] [address] Yennifer Urias, OD [address] [place] [address] Open angle with borderline findings, low risk, bilateral (Primary Dx) Social History Tobacco Use Types [...] AM EDT documented as of this encounter Progress Notes * Yennifer Urias, OD - 06/13/2025 11:00 AM EST Eye Care Progress Note Patient ID: Aajph Cristhian is a 54 y.o. female. Chief Complaint Follow-up HPI Patient presents for glaucoma suspect f/u and baseline visual field. Pt reports excellent vision following cataract surgery. Denies other ocular complaints. Her last eye exam was here on 12/11/2024. Last edited by Yennifer Urias OD on 06/13/2025 1:12 PM. Current Medications[1] Medical History[2] Surgical History[3] Family History[4] Social History Socioeconomic History Marital status: Unknown Spouse name: Not on file Number of children: Not on file Years of education: Not on file Highest education level: Not on file Occupational History Not on file Tobacco Use Smoking status: Never Passive exposure: Never Smokeless tobacco: Never Substance and Sexual Activity Alcohol use: Never Drug use: Never Sexual activity: Not on file Other Topics Concern Not on file Social History Narrative Not on file Social Drivers of Health Food Insecurity: Not on file Transportation Needs: Not on file Intimate Partner Violence: Not At Risk (07/04/2023) Received from [facility] Intimate Partner Violence Are you denied basic needs such as food, clothing, or medical care?: No In the past 12 months have you been in a relationship with a person who hurts, threatens, or tries to control you?: No Are you denied basic needs such as food, clothing, or medical care?: No In the past 12 months have you been in a relationship with a person who hurts, threatens, or tries to control you?: No Housing Stability: Not on file Allergies[5] ROS Positive for: Eyes Negative for: Constitutional, Gastrointestinal, Neurological, Skin, Genitourinary, Musculoskeletal,HENT, Endocrine, Cardiovascular, Respiratory, Psychiatric, Allergic/Imm, Heme/Lymph Last edited by Alessandro Dang on 06/13/2025 12:00 PM. Base Eye Exam Visual Acuity (Snellen - Linear) Right Left Dist sc 20/20 20/20 Tonometry (Applanation, 11:42 AM) Right Left Pressure 20 21 Pachymetry (06/13/2025) Right Left Thickness 562 565 Gonioscopy (Zeiss, four mirror) Right Left Temporal CBB CBB Nasal CBB CBB Superior CBB CBB Inferior CBB CBB (-) AR/PAS/NVA OU Pupils Pupils APD Right PERRL None Left PERRL None Visual Guaman (Counting fingers) Left Right Full Full Extraocular Movement Right Left Full Full Neuro/Psych Oriented x3: Yes Mood/Affect: Normal Slit Lamp and Fundus Exam External Exam Right Left External Normal Normal Slit Lamp Exam Right Left Lids/Lashes Clean and clear Clean and clear Conjunctiva/Sclera White and quiet White and quiet Cornea CE scars CE scars Anterior Chamber Deep and quiet, angles open gr 4 Deep and quiet, angles open gr 4 Iris Round and reactive, (-) NVI Round and reactive, (-) NVI Lens PC-IOL clear and centered PC-IOL clear and centered Fundus Exam Right Left Vitreous Clear Clear Disc [place] and healthy, (-) NVD [place] and healthy, (-) NVD C/D Ratio Vertical 0.50 0.45 C/D Ratio Horizontal 0.50 0.45 Macula Flat with even pigmentation, (-) CME Flat with even pigmentation, (-) CME Vessels Normal course and caliber, (-) NVE Normal course and caliber, (-) NVE Periphery Not assessed Not assessed Assessment/plan: Diagnoses and all orders for this visit: 1. Open angle with borderline findings, low risk, bilateral Glaucoma history/summary - POAG suspect due to: elevated IOP and moderate C/D OU -Fhx glaucoma: none -IOP today (GAT): 20/21, Tmax: 23/23 (05/25/24) -VF 24-2 (06/13/2025): Clear both eyes - baseline -Pachymetry (06/13/2025): 562/565 -Gonio (06/13/2025): CBB all 4 quadrants both eyes Pt and son educated on today's findings. RTC in 3-4 months for KLAUS and RNFL OCT or sooner if any visual or ocular concerns arise. - Automated Visual Field, Extended - OU - Both Eyes Yenniferget Urias, OD 06/13/2025, 1:14 PM Student Name: Alessandro Dang I attest that I was physically present with the optometry student. I personally saw and evaluated the patient and performed my own history and examination. I have reviewed, verified, and revised the documented findings as necessary and agree with the content and plan as written. Senior Process Control Tech Source: ___ None ___ Bilingual Staff ___ Qualified Staff Patrol Sergeant [employer] ___ Telephone Senior Process Control Tech; ID# __x_ Senior Process Control Tech brought by patient (family member, friend, BANJO REPAIRER, etc) ___ In person knitting supervisor ___ Ipad Senior Process Control Tech; ID#: Language Spoken During Exam: Arabic [1] Current Outpatient Medications Medication Sig Dispense Refill Alcohol Swabs 70 % pads Use to test blood sugar 2 times daily 100 each 11 Blood Glucose Monitoring Suppl (FreeStyle [place] Lite) w/Device kit Use to test blood sugar 2 times daily 1 kit 0 glucose blood (FreeStyle InsuLinx Test) test strip Use 1 by To Skin route 2 times every day Januvia 50 MG tablet TAKE ONE TABLET BY MOUTH EVERY DAY 30 tablet 3 Lancets misc Use to test blood sugar 2 times daily 100 each 11 levothyroxine (Synthroid, Levoxyl) 50 MCG tablet TAKE ONE TABLET EVERY DAY 30 tablet 0 lisinopril 10 MG tablet TAKE ONE TABLET BY MOUTH ONCE DAILY 30 tablet 11 metFORMIN (Glucophage) 1000 MG tablet TAKE ONE TABLET TWICE DAILY WITH BREAKFAST AND SUPPER 60 tablet 3 simvastatin (Zocor) 40 MG tablet TAKE ONE TABLET BY MOUTH EVERY DAY 30 tablet 3 No current facility-administered medications for this visit. [2] History reviewed. No pertinent past medical history. [3] Past Surgical History: Procedure Laterality Date CATARACT EXTRACTION, BILATERAL Bilateral 2024 SECTION, LOW TRANSVERSE THYROIDECTOMY [4] Family History Problem Relation Name Age of Onset Diabetes Mother [5] No Known Allergies documented in this encounter Plan of Treatment Upcoming Encounters Date Type Department Care Team (Late st Contact Info) Description 10/25/2025 11:00 AM EDT Office Visit [facility] [address] [place], [place] [phone] Yennifer Urias OD [address] [place] [address] documented as of this encounter Procedures Procedure Name Priority Date/Time Associated Diagnosis Comments AUTOMATED VISUAL FIELD, EXTENDED - OU - BOTH EYES Routine 06/13/2025 1:14 PM EST Open angle with borderline findings, low risk, bilateral documented in this encounter Results * Automated Visual Field, Extended - OU - Both Eyes (06/13/2025 1:14 PM EST) Yennifer Contreras, OD - 06/13/2025 1:14 PM EST VISUAL FIELD INTERPRETATION Visual Field Interpretation Test Details: Reliability Indices: False positive errors OD: 2/8 OS: 0/7 False negative errors OD: 0/8 OS: 0/7 Statistical Indices: MD [< 2.0 src]: OD: -1.9 OS: -2.3 sLV [< 2.5 src]: OD: 1.3 OS: 0.8 Impression: Reason for testing: Glaucoma suspect OU due to moderate cupping and elevated IOP. Test Reliability: Good reliability both eyes Impression: No significant visual defects in both eyes. Progression: Baseline Management Plan: Pt and son educated on today's findings. RTC in 3-4 months for KLAUS and RNFL OCT or sooner if any visual or ocular concerns arise. Yennifer Urias OD OPHTH VISUAL FIELD Final Result documented in this encounter Visit Diagnoses Diagnosis Open angle with borderline findings, low risk, bilateral- Primary documented in this encounter Additional Health Concerns Assessment Noted Time PHQ-9 Depression Total Score: 0 02/02/20 24 10:39 AM EDT documented as of this encounter Care Teams Net Application Architect Relationship Specialty Start Date End Date Isai Barajas MD [address] [place] [phone] PCP - General Internal Medicine 05/20/21 documented as of this encounter
--- NOTE | 2025-06-18 14:06 | A.OFFVIS_ITS ---
Vital Signs 3 06/18/25 14:09 Height 5 ft 5 in Weight 163 lb 2.273 oz BMI 27.1 BP 134/80 Blood Pressure Location Rt brachial Position Sitting Pulse 92 Pulse Source Pulse Oximeter Pulse Oximetry (%) 96 Oxygen Delivery Method Room Air Intake Visit Reasons: Hypothyrodism Intake Note: Patient present today for Hypothyroidism office visit. Patient last seen by DR Faustina Rob MD. * Thyroid Lab [place]: Completed on 06/13/2025 Computer Forwarding System Markup Clerk Required: Yes Computer Forwarding System Markup Clerk Language: Telugu Computer Forwarding System Markup Clerk Services: Computer Forwarding System Markup Clerk Offered & Declined Computer Forwarding System Markup Clerk Name: SON Accompanied by: Son Allergies No Known Allergies Allergy (Verified 06/18/25 14:13) HPI Comments Details: 53-year-old female coming in today for follow up of papillary thyroid cancer status post total thyroidectomy on 04/18/[address] Tapan Huston at [facility], with pathology revealing multifocal (4 foci) classic PTC, largest tumor 8 mm in the right lobe, remaining foci ranging between 0.15-4 mm bilaterally, with no ET E/AI/LI, negative margins, no lymph nodes assessment. NU low risk of recurrence for initial risk. Now coming in for follow up. Last seen by Dr. Rob on 12/10/24. This is my first time seen this patient. She is here with her son today who is doing all the interpretation and answering the questions. History of PTC in detail Was initially diagnosed with multinodular thyroid in her home country [place] 2020: Apparently she did undergo FNA biopsy there in 2020, but was unsure which nodules were biopsied. Reportedly the results were benign. Thyroid ultrasound from May 2021 showed multiple bilateral thyroid nodules with a left lobe dominant nodule extending into the isthmus measuring 4 point 3 X 2.9 X 5 cm. TR 4 category. Established care with us with Dr. Puentes in January 2022. November/2022: Underwent FNA of the left dominant 5 cm nodule which came back benign [place] category 2 She continued to complain of compressive symptoms hence she was referred to Dr. Tapan Huston at [facility]. 04/18/2024: Underwent total thyroidectomy with Dr. Tapan Huston at [facility] with pathology revealing multifocal classic PTC (4 foci)largest tumor 8 mm in the right lobe, remaining foci ranging between 0.15-4 mm bilaterally, with no ET E/AI/LI, negative margins, no lymph nodes assessment. AJCC stage I (pT1, NX), NU initial low risk of recurrence She also notably has a history of hypothyroidism previously and was on levothyroxine 50 mcg daily. Post surgery she has been started on levothyroxine 112 mcg daily since 04/18/24. She is adherent to her therapy however she has been taking it after breakfast daily. 05/22/24: TSH 6.11, free T4 1.17, thyroglobulin 0.8, thyroglobulin antibodies undetectable She currently denies any numbness or tingling in feet or hands. Denies any perioral numbness. Her vitamin-D level was 7 from December 2022, fortunately no symptoms of hypocalcemia with no parathyroid adenoma removed during surgery. She was started on vitamin D 1000 units daily in May 2024. Vitamin-D level at 32 from July 2024. 05/24/2024: Levothyroxine increased from 112 mcg daily to 125 mcg daily 07/13/2024: TSH 0.31, free T4 1.4, thyroglobulin less than 0.1, TG antibody less than 1 08/24/2024: TSH 5.38, free T4 1.15, TG 0.6, TG antibody less than 1 08/29/2024: Levothyroxine increased from 125 mcg daily to 150 mcg daily 10/25/2024: TSH 0.11, free T4 1.57 11/08/2024: Ultrasound of the neck, I reviewed the images myself, it did not show any abnormal lymph nodes Interval history 06/13/25: TSH 6.39, FT4 1.15, Tg 0.6, Tg AB < 1 Patient reports reports doing well taking LT4 150 mcg since , separate from foods and other meds. Complaint No weight gained weight She has not started taking any new medication Not known medications that contains biotin, she does uses moringa Currently taking 1000 units of vitamin D daily Taking 150 mcg of levothyroxine daily, good adherence and administration Patient currently denies heat or cold intolerance, diarrhea or constipation, hair loss, palpitation, anxiety, weight changes, mood changes, low energy, changes in appearance of eyes or vision changes, tremors, increased diaphoresis or dry skin. ? Patient denies any difficulty swallowing, pain on swallowing or voice changes or difficulty breathing. Patient denies any history of childhood neck radiation. Denies having ever used lithium, amiodarone or biotin supplements. Patient denies any family history of thyroid cancer or thyroid disease. Physical exam General: alert, no acute distress Neck: supple, surgical scar well healed, no palpable lymph nodes or masses Cardiac: normal heart sounds Pulm: normal breath sounds B/L, no added breath sounds Abd: not distended, no tenderness Extremities: no edema, no signs of myxedema Neuro: AAO x3, Speech: normal, no facial droop, moving all 4 extremities Laboratory Tests 05/22/24 07/13/24 08/24/24 16:00 08:54 11:10 25-OH Vitamin D Total 32.2 TSH 6.11 H 0.31 L 5.38 H Free T4 1.17 1.41 1.15 Thyroglobulin 0.8 H <0.1 L 0.6 H Thyroglobulin Antibody <1 <1 10/25/24 06/13/25 16:56 12:12 25-OH Vitamin D Total TSH 0.11 L 6.39 H Free T4 1.57 1.15 Thyroglobulin 0.6 H Thyroglobulin Antibody <1 EXAMINATION: US HEAD NECK SOFT TISSUE 11/08/24 HISTORY: C73 - Malignant neoplasm of thyroid gland COMPARISON: Comparison is made with the prior examination dated 05/13/2021. FINDINGS: Sonographic examination of the neck was performed. The patient is status post thyroidectomy. Multiple normal lymph nodes are identified demonstrating thin cortices and fatty burton. No enlarged or abnormal lymph nodes are identified. US/US soft tiss head and/or neck IMPRESSION: No evidence of cervical lymphadenopathy. Electronically signed by: Gerhard Campbell MD 11/09/2024 08:12 AM EDT RP US THYROID May 2021 CLINICAL INFORMATION: Goiter. COMPARISON: None TECHNIQUE: Linear transducer grayscale and color Doppler examination with attention to the region of the thyroid. FINDINGS: SIZE: Measurements of the thyroid lobes and nodules are given in sagittal, anteroposterior and transverse dimensions respectively. Right Thyroid Lobe: 5.7 x 2.0 x 2.3 cm, volume 13.7 mL. Parenchyma: The gland echotexture is heterogeneous. Thyroid vascularity is normal. Left Thyroid Lobe: 7.7 x 2.9 x 3.0 cm, volume 35.0 mL. Parenchyma: The gland echotexture is heterogeneous. Thyroid vascularity is increased. Isthmus: 0.9 cm in maximum AP dimension. Estimated total number of nodules greater than or equal to 1 cm: 2. [employer] nodules are described as follows: 1. Location: Left lobe extending into isthmus. Size: 4.3 x 2.9 x 5.0 cm, volume 32.9 mL. Nodule characteristics: Composition: Solid (2). Echogenicity: Isoechoic (1). Shape: Not taller than wide (0). Margins: Lobulated (2). Echogenic Foci: None (0). ACR TI-RADS total points: 5 ACR TI-RADS category: 4 2. Location: Right upper pole. Size: 1.0 x 0.7 x 1.0 cm, volume 0.37 mL. Nodule characteristics: Composition: Solid (2). Echogenicity: Hypoechoic (2). Shape: Not taller than wide (0). Margins: Smooth (0). Echogenic Foci: Punctate echogenic foci (3). ACR TI-RADS total points: 7 ACR TI-RADS category: 5 3. Location: Right mid pole. Size: 0.7 x 0.4 x 0.6 cm, volume 0.07 mL. Nodule characteristics: Composition: Mixed cystic and solid (1). Echogenicity: Hypoechoic (2). Shape: Not taller than wide (0). Margins: Smooth (0). Echogenic Foci: None (0). ACR TI-RADS total points: 3 ACR TI-RADS category: 3 4. Location: Right lower pole/lateral. Size: 0.7 x 0.4 x 0.6 cm, volume 0.09 mL. Nodule characteristics: Composition: Solid/almost completely solid (2). Echogenicity: Hypoechoic (2). Shape: Not taller than wide (0). Margins: Smooth (0). Echogenic Foci: None (0). ACR TI-RADS total points: 4 ACR TI-RADS category: 4 5. Location: Right lower pole/medial. Size: 0.6 x 0.4 x 0.4 cm, volume 0.05 mL. Nodule characteristics: Composition: Cannot be determined (2). Echogenicity: Cannot be determined (1). Shape: Not taller than wide (0). Margins: Smooth (0). Echogenic Foci: Peripheral calcifications (2). ACR TI-RADS total points: 5 ACR TI-RADS category: 5 NODES: No lymphadenopathy is seen in the tissue surrounding the thyroid gland. US/US thyroid IMPRESSION: Enlarged heterogeneous thyroid gland with multiple bilateral nodules. Fine-needle aspiration of the largest nodule in the left lobe extending into the isthmus and partially calcified nodule in the right upper lobe recommended. [facility] Medical History (Updated 05/24/24 @ 10:48 by Faustina Rob MD) Papillary thyroid carcinoma T2DM (type 2 diabetes mellitus) Vitamin D deficiency Multinodular thyroid Hypothyroidism Surgical History History of thyroid surgery Hx of section Family History Father Unknown family medical history Mother Unknown family medical history Social History Alcohol intake: never Patient Tobacco Use Status: Never used Tobacco Physical Exam Vital Signs: Last Vital Signs Pulse 92 06/18/25 14:09 BP 134/80 06/18/25 14:09 Pulse Ox 96 06/18/25 14:09 Oxygen Delivery Method Room Air 06/18/25 14:09 BMI result Body Mass Index 27.1 Assessment & Plan Assessment & Plan (1) Hypothyroidism: Code(s): E03.9 - Hypothyroidism, unspecified Category: Medical Qualifiers: Hypothyroidism type: postoperative Qualified Code(s): E89.0 - Postprocedural hypothyroidism (2) Papillary thyroid carcinoma: Code(s): C73 - Malignant neoplasm of thyroid gland Category: Medical Plan: 53-year-old female coming in today for follow up of papillary thyroid cancer status post total thyroidectomy on 04/18/[address] Tapan Huston at [facility], with pathology revealing multifocal (4 foci) classic PTC, largest tumor 8 mm in the right lobe, remaining foci ranging between 0.15-4 mm bilaterally, with no ET E/AI/LI, negative margins, no lymph nodes assessment. AJCC stage I (pT1, NX) ,NU low risk of recurrence for initial risk. 08/24/2024: TSH 5.38, free T4 1.15, TG 0.6, TG antibody less than 1 Her postop TG in the 1st year after surgery has been detectable but low, we will target her TSH to 0.1-0.5. 08/29/2024: Levothyroxine increased from 125 mcg daily to 150 mcg daily 10/25/2024: TSH 0.11, free T4 1.57, TSH within goal Most recently 11/08/2024: Ultrasound of the neck, it did not show any abnormal lymph nodes 06/13/25: TSH 6.39, FT4 1.15, Tg 0.6, Tg AB < 1 Plan: TSH goal 0.5-2 Dynamic risk stratification: indeterminated given Tg 0.6 and TSH elevated increased levothyroxine as follows: Tuesday to Tuesday 1 tablet 150 mcg, On Sundays only 2 tablets 300 mcg Repeat TSH in 6 weeks repeat TSH, free T4, TG and TG antibody levels prior to follow up in 6 months next ultrasound of the neck to be done in 1 year sometime in November 2025 follow up in 6 months (3) Vitamin D deficiency: Code(s): E55.9 - Vitamin D deficiency, unspecified Category: Medical Plan: Vitamin-D level noted to be at 7 from December 2022. This should be between 30-60. Start vitamin-D 1000 units daily. Fortunately no parathyroid injury during the thyroidectomy. She denies any signs of hypocalcemia. Normal calcium level of 32 from July 2024. 06/13/25: Vit D 37.5 Plan: -continue vitamin-D 1000 units daily Plan I spent 30 minutes in reviewing the record, seeing the patient and documenting in the medical record. Orders: Orders 2 TSH reflex Free T4 6 Weeks C73 - Malignant neoplasm of thyroid gland Medications: Refilled 2 levothyroxine 150 mcg PO DAILY 120 tabs 6RF Patient Instructions: Increase levothyroxine as below: Tuesday to Tuesday 1 tablet 150 mcg On Sundays only 2 tablets 300 mcg Repeat labs in 6 weeks Coding Level of Care Code Est Pt Level 4 (39846) Diagnoses Postoperative hypothyroidism E89.0 Hypothyroidism type: postoperative Papillary thyroid carcinoma C73 Vitamin D deficiency E55.9
[2025-06-18 14:09] VITALS: BP 134/80; PULSE 92; O2SAT 96; BMI 27.1
--- OUTSIDE RECORDS SUMMARY | 2025-06-18 15:43 | XMS_ITS | Encounter Summary ---
Author Organization [employer] Address [address] [place] [address] [place] [address] Care Team Providers Care Wire Inspector Name Role Phone Isai Barajas MD Primary Care Provider [phone] Reason for Visit * Reason Comments Med Refill Encounter Details Date Type Department Care Team (Late Contact Info) Description 01/11/2024 Refill [facility] [address] [place] [address] Isai Barajas MD [address] [place], [place] [phone] Other specified hypothyroidism; Type 2 diabetes mellitus [...] 10/25/2025 11:00 AM EDT Office Visit [facility] OPTOMETRY [address] [place] [address] TarkaYennifer, OD [address] [place] [address] documented as of this encounter Visit Diagnoses Diagnosis Other specified hypothyroidism Type 2 diabetes mellitus without complications (HCC) Essential (primary) hypertension Unspecified essential hypertension Mixed hyperlipidemia documented in this encounter Care Teams Wire Inspector Relationship Specialty Start Date End Date Isai Barajas MD [address] [place] [phone] PCP - General Internal Medicine 05/20/21 documented as of this encounter
--- OUTSIDE RECORDS SUMMARY | 2025-06-18 15:43 | XMS_ITS | Encounter Summary ---
Author Organization [employer] Address [address] [place] [address] Care Team Providers Care Device Processing Engineer Name Role Phone Isai Barajas MD Primary Care Provider [phone]- [phone] Reason for Visit * Reason Onset Date Comments Durable Medical Equipment 01/09/2024 Encounter Details Date Type Department Care Team (Late st Contact Info) Description 01/09/2024 Telephone [facility] MEDICINE [address] [place] [address] Isai Barajas MD [address] [place] [address] Durable Medical Equipment Social History Tobacco Use [...] Description 10/25/2025 11:00 AM EDT Office Visit [facility] OPTOMETRY [address] [place] [address] Yennifer Urias, OD [address] [place] [address] documented as of this encounter Visit Diagnoses Not on filedocumented in this encounter Care Teams Device Processing Engineer Relationship Specialty Start Date End Date Isai Barajas MD [address] [place] [phone] PCP - General Internal Medicine 05/20/21 documented as of this encounter
--- OUTSIDE RECORDS SUMMARY | 2025-06-18 15:43 | XMS_ITS | Encounter Summary ---
Author Organization [employer] Address [address] [facility] [address] [place] [address] Care Team Providers Care Bullet Swaging Machine Operator Name Role Phone Isai Barajas MD Primary Care Provider [phone] Encounter Details Date Type Department Care Team [...] Description 10/25/2025 11:00 AM EDT Office Visit [facility] OPTOMETRY [address] [place], [place] [phone] Yennifer Urias, OD [address] [place] [address] documented as of this encounter Visit Diagnoses Not on filedocumented in this encounter Additional Health Concerns Assessment Noted Time PHQ-9 Depression Total Score: 0 02/02/20 24 10:39 AM EDT documented as of this encounter Care Teams Bullet Swaging Machine Operator Relationship Specialty Start Date End Date Isai Barajas MD [address] [place] [id number] PCP - General Internal Medicine 05/20/21 documented as of this encounter
--- OUTSIDE RECORDS SUMMARY | 2025-06-18 15:43 | XMS_ITS | Encounter Summary ---
Author Organization [employer] Address [address] [facility] [address] [place] [address] Care Team Providers Care Mental Health Aide Name Role Phone Isai Barajas MD Primary Care Provider [phone] Encounter Details Date Type Department Care Team (Late Contact Info) Description 05/04/2024 Orders Only [facility] MED [facility] PEDS [address] [place], [place] [phone] Provider, MD Sharmin Social History Tobacco Use [...] Description 10/25/2025 11:00 AM EDT Office Visit [facility] OPTOMETRY [address] [place] [address] Yennifer Urias, OD [address] [place] [address] documented as of this encounter Procedures Procedure [...] documented as of this encounter Care Teams Mental Health Aide Relationship Specialty Start Date End Date Isai Barajas MD [address] [place] [phone] PCP - General Internal Medicine 05/20/21 documented as of this encounter
--- OUTSIDE RECORDS SUMMARY | 2025-06-18 15:43 | XMS_ITS | Encounter Summary ---
Author Organization [employer] Address [address] [address] Care Team Providers Care Automatic Furnace Operator Name Role Phone Isai Barajas MD Primary Care Provider [phone] Reason for Visit * Reason Onset Date Comments Med Refill 01/09/2024 Encounter Details Date Type Department Care Team (Late st Contact Info) Description 01/09/2024 Telephone [facility] MEDICINE [address] [place] [address] Isai Barajas MD [address] [place] [address] Med Refill Social History Tobacco Use Types [...] 01/11/2024 9:44 AM EDT Appt scheduled with [facility] provider as pt has not seen a [...] 40 MG tablet To be sent to: [facility] [place], [place] - [address] [facility] documented in this encounter Plan of Treatment Upcoming Encounters Date Type Department Care Team (Late st Contact Info) Description 10/25/2025 11:00 AM EDT Office Visit [facility] OPTOMETRY [address] [place] [address] Yennifer Urias, OD [address] [place] [address] documented as of this encounter Visit Diagnoses Not on filedocumented in this encounter Care Teams Automatic Furnace Operator Relationship Specialty Start Date End Date Isai Barajas MD [address] [place] [address] PCP - General Internal Medicine 05/20/21 documented as of this encounter
--- OUTSIDE RECORDS SUMMARY | 2025-06-18 15:43 | XMS_ITS | Encounter Summary ---
Author Organization [employer] Address [address] [place] [address] [place] [address] Care Team Providers Care Lpn Or Medical Assistant Name Role Phone Isai Barajas MD Primary Care Provider [phone]- [phone] Encounter Details Date Type Department Care Team ([facility] Contact Info) Description 01/09/2024 Orders Only [facility] MED [facility] PEDS [address] [place], [place] [phone] Isai Barajas MD [address] [place] [address] Type 2 diabetes mellitus without complication, without long-term current use of insulin ([facility]) (Primary Dx) Social History Tobacco Use Types [...] Description 10/25/2025 11:00 AM EDT Office Visit [facility] OPTOMETRY [address] [place], [place] [phone] Yennifer Urias OD [address] [place] [address] documented as of this encounter Procedures Procedure Name Priority Date/Time Associated Diagnosis Comments ALBUMIN, RANDOM URINE W/CREATININE Routine 01/30/2024 8:50 AM EDT Type 2 diabetes mellitus without complication, without long-term current use of insulin ([facility]) documented in this encounter Results * Albumin, Random Urine W/Creatinine (01/30/2024 8:50 AM EDT) Creatinine, Urine 76.90 mg/dL [facility] Microalbumin Urine 9.0 mg/L [facility] Microalbum Creatinine Ratio Ur 11.7 <30 ug/mg cr [facility] Comment:Albumin/Creatinine R atio Reference Ranges: Normal: < 30 ug/mg creatinine Microalbuminuria: 30 - 300 ug/mg creatinineClinical Albuminuria: > 300 ug/mg creatinine 01/30/2024 8:50 AM EDT 01/30/2024 1:06 PM EDT us Brooklynn Fleming MD LAB URINE ORDERABLES Final Re sult [facility] [address] [place] [address] [phone] documented in this encounter Visit Diagnoses Diagnosis Type 2 diabetes mellitus without complication, without long-term current use of insulin ([facility])- Primary documented in this encounter Care Teams Lpn Or Medical Assistant Relationship Specialty Start Date End Date Isai Barajas MD [address] [place] [phone] PCP - General Internal Medicine 05/20/21 documented as of this encounter
--- OUTSIDE RECORDS SUMMARY | 2025-06-18 15:43 | XMS_ITS | Clinical Summary ---
Author Organization [facility] Address [address] [facility] ([place], [place]) [address] [place] [phone] Phone Care Team Providers Care Horse Farm Manager Name Role Phone Zoila Aldridge MD Primary [...] you interested in more education? Not on amara e 05/26/2023 Are you concerned about learning? [...] patient's age to complete this topic IPV VACCINES Aged Out No longer eligi ble based on patient's age to complete this topic MENINGOCOCCAL VACCINES (ACWY) Aged Out No longer eligible based on patient's age to complete this topic MENINGOCOCCAL VACCINES (B) Aged Out N o longer eligible based on patient's age to complete this topic Medical Devices Not on file Insurance [facility] DIRECT [facility] SAFETY NET FULL [facility] CONNECTORCARE DIRECT [facility] FULL [facility] CONNECTORCARE DIRECT [facility] [employer]ETY NET [place] [address] [place] [address] DIRECT [facility] HEALTH SAFETY NET FULL [facility] DIRECT [facility] NET FULL Member Subscriber Plan / Payer (Ef fective 2023-Present) Name:Trudy Morrow Relation to Subscriber:Self Name:Trudy Morrow Payer ID:Not on file Group ID:Not on file Type:Medicaid Address: [place] [id number] [facility] PUBLIC [facility] CONNECTORCARE DIRECT [facility] NET FULL Care Teams Horse Farm Manager Relationship Specialty Start Date End [place] [address] PCP - General 05/26/23 Additional Source Comments The information contained in this document represents components of the legal health record. It is not the complete legal health record.[facility]
--- OUTSIDE RECORDS SUMMARY | 2025-06-18 15:43 | XMS_ITS | Encounter Summary ---
Author Organization [employer] Address [address] [place] [address] Care Team Providers Care Nursing Assistant Name Role Phone Isai Barajas MD Primary Care Provider [phone] Reason for Visit * Reason Onset Date Comments Med Refill 03/01/2024 Encounter Details Date Type Department Care Team ([facility] st Contact Info) Description 03/01/2024 Telephone [facility] MEDICINE [address] [place] [address] Isai Barajas MD [address] [place] [address] Med Refill Social History Tobacco Use Types [...] 10/25/2025 11:00 AM EDT Office Visit [facility] OPTOMETRY [address] [place] [address] Tarka Yennifer, OD [address] [place] [address] documented as of this encounter Visit Diagnoses Not on filedocumented in this encounter Additional Health Concerns Assessment Noted Time PHQ-9 Depression Total Score: 0 02/02/20 24 10:39 AM EDT documented as of this encounter Care Teams Nursing Assistant Relationship Specialty Start Date End Date Isai Barajas MD [address] [place] [address] PCP - General Internal Medicine 05/20/21 documented as of this encounter
--- OUTSIDE RECORDS SUMMARY | 2025-06-18 15:43 | XMS_ITS | Clinical Summary ---
Author Organization [employer] Address [address] [facility] [address] [place] [address] Care Team Providers Care Formation Fracturing Operator Name Role Phone Isai Barajas MD [...] 4 Active Blood Glucose Monitoring Suppl (FreeStyle Witt Lite) w/Device kitIndications:Typ e 2 diabetes mellitus [...] 11:00 AM EST Office Visit [facility] OPTOMETRY [address] [place] [address] TarYennifer prado, OD Open angle with borderline findings, low risk, bilateral (Primary Dx) 06/13/2025 Travel 03/23/2025 Refill [facility] MED & PEDS [address] [place], [place] [phone] Juana Chowdhury MD 03/23/2025 Refill [facility] MED [facility] PEDS [address] [place], [place] [phone] Isai Barajas MD Type 2 diabetes mellitus [...] 11:00 AM EDT Office Visit [facility] OPTOMETRY [address] [place] [address] Adonay Yennifer, OD [address] [place] [address] Health Maintenance Due Date Last Done Comments [...] - 6.0 % QC Media Lot # Comment:[id number] Lot# Expiration Date Comment:03/08/2026 Blood 07/10/2024 2:36 PM EST Isai Barajas MD POINT OF CARE TEST ENTER/ED IT ORDERABLES Final Result * BI Mammogram Screening Tomosynthesis Bilateral (02/08/2024 9:30 AM EDT) Anatomical Region Laterality Modality Breast Bilateral Mammography 02/08/2024 9:30 AM EDT Narrative 03/07/2024 2:35 PM EDT [address] [place] [address] Mammography Report Signed Patient: Trudy Morrow MR#: [id number] : 1970 Acct:[id number] Age/Sex: 53 / F ADM Date: 02/08/24 Loc: HO.MAMMO Attending Dr: Brooklynn Fleming MD Ordering Physician: Brooklynn Fleming MD Results: 1Nega tive Date of Service: 02/08/24 Follow Up: 1 Year From Orig inal Mammogram Procedure(s): MM tomosynthesis screening BI Accession Number(s): [id number] cc: Isai Barajas MD; Brooklynn Fleming MD [...] in OV> 03/07/24 1431 DD/ 0930 TD/TT: Track Repair Worker: Procedure Note Donotuseinterpreter, Image - 03/07/[address] [place] [address] Mammography Report Signed Patient: Trudy MorrowMR#: [id number] : 1970Acct:[id number] Age/Sex: 53 / FADM Date: 02/08/24 Loc: HO.MAMMO Attending Dr: Brooklynn Fleming MD Ordering Physician: Brooklynn Fleming MDResults: 1Nega tive Date of Service: 02/08/24Follow Up: 1 Year From [facility] ina Mammogram Procedure(s): MM tomosynthesis screening BI Accession Number(s): [id number] cc: Isai Barajas MD; Brooklynn Fleming MD [...] in OV> 03/07/24 1431 DD/ 0930 TD/TT: Track Repair Worker: us Brooklynn Fleming MD IMG BI PROCEDURES Final Resul t * Albumin, Random Urine W/Creatinine (01/30/2024 8:50 AM EDT) Creatinine, Urine 76.90 mg/dL [facility] Microalbumin Urine 9.0 mg/L [facility] Microalbum Creatinine Ratio Ur 11.7 <30 ug/mg cr [facility] Comment:Albumin/Creatinine R atio Reference Ranges: Normal: < 30 ug/mg creatinine Microalbuminuria: 30 - 300 ug/mg creatinineClinical Albuminuria: > 300 ug/mg creatinine 01/30/2024 8:50 AM EDT 01/30/2024 1:06 PM EDT us Brooklynn Fleming MD LAB URINE ORDERABLES Final Re sult Performing Organization Address [facility] [place] [facility] Co de Phone Number [facility] [address] [place] [address] [phone] * (ABNORMAL) Lipid Panel, Standard (01/30/2024 8:45 AM EDT) Triglycerides 154(H) <150 mg/dL [facility] Comment:Desirable Triglyceri de: less than 150 mg/dLBorderline High Triglyceride 150-199 mg/dLHigh Triglyceride: 200-499 mg/dLVery High Triglyceride: greater than or equal to 5OO mg/dL Cholesterol 169 <200 mg/dL [facility] Comment:Desirable Cholestero l: less than 200 mg/dLBorderline High Cholesterol: 200-239 mg/dLHigh Cholesterol: greater than 239 mg/dL LDL Cholesterol Calculated 92 <100 mg/dL [facility] Comment:Desirable LDL: less than 100 mg/dLNear Optimal/Above Optimal LDL: 110- 129 mg/dLBorderline High LDL: 130-159 mg/dLHigh LDL: 160-189 mg/dLVery High LDL: greater than or equal to 190 mg/dL HDL Cholesterol 47 >40 mg/dL [facility] Comment:Desirable HDL: great er than 40 mg/dL Note: This HDL assay may give artificially low results in patients with liver disease. Blood Venous blood specimen / Unknown 01/30/2024 8:45 AM EDT 01/30/2024 1:12 PM EDT us Brooklynn Fleming MD LAB BLOOD ORDERABLES Final Re sult Performing Organization Address [facility] [place] [facility]/ZIP Co de Phone Number [facility] [address] [place] [address] [phone] * THINPREP PAP (05/05/2021 11:15 AM [...] along with historic and current clinical information. Newspaper Journalist : SEE COMMENT [facility] Comment: MARCMSTEFANY(ASCP) CT screening location: [place] [address] Interpretation/R esult: Negative for intraepithelial lesion or malignancy. [facility] LMP: NONE GIVEN FOUNDATIO N [...] Deneen HARVEY LAB PATHOLOGY ORDERABLES Final Result [facility] [address] * HPV mRNA E6/E7 (05/05/2021 11:15 AM EDT) HPV nRNA E6/E7 Not Detected Not Detected [facility] Comment: Methodology: Cable Tender-Mediated Amplification This assay detects E6/E7 viral messenger RNA (mRNA) from 14 high-risk HPV types (16,18,31,33,35,39,45,51,52,56,58,59,66,68). The analytical performance characteristics of this assay have been determined by [employer]. The modifications have not been cleared or approved by the FDA. This assay has been validated pursuant to the CLIA regulations and is used for clinical purposes. For additional information, please refer to http://education.[employer]/faq/EXW572j9 (This link if provided for information/ educational purposes only.) 05/05/2021 11:1 5 AM EDT us Deneen Arshad CNM LAB BLOOD ORDERABLES Shahana zepeda Result [facility] [address] [place] [address], from Last 3 Months or Most Recently Relevant to Health Maintenance Insurance [place] [address] Care Teams Formation Fracturing Operator Relationship Specialty Start Date End Date Isai Barajas MD [address] [place] [address] PCP - General Internal Medicine 05/20/21
== END 2025-06-18 14:40 | disposition home or self-care (01) ==
LOC: HO.ENCR 14:03
PROVIDERS: Visit Provider Student in an Organized Health Care Education/Training Program
DX: E89.0 Postprocedural hypothyroidism (principal); C73 Malignant neoplasm of thyroid gland; E55.9 Vitamin D deficiency, unspecified
CPT/HCPCS: 99214

== ENCOUNTER → 2025-06-18 14:02 | Outpatient (BNVA) | payer OTHER, SELFPAY | PROVIDERS: Visit Provider Student in an Organized Health Care Education/Training Program | DX: E89.0 Postprocedural hypothyroidism (principal); C73 Malignant neoplasm of thyroid gland; E55.9 Vitamin D deficiency, unspecified | CPT/HCPCS: 99212 ==